=== PATIENT | male | born 1975 | race Caucasian/White ===

== ENCOUNTER 2016-09-30 19:22 | Inpatient (IN) | payer OTHER ==
[~2016-09-30] VITALS: Ht 162.6 cm; Wt 60.1 kg
[2016-09-30 19:29] VITALS: BP 161/99; PULSE 77; RESP 18; TEMP 97.8; O2SAT 95
[2016-09-30 19:59] LABS: AUTOMATED NEUTROPHIL # 3.7 TH/MM3 (1.8-7.7); BASOPHIL # 0.1 TH/MM3 (0-0.2); BASOPHIL % 1.3 % (0.0-2.0); EOSINOPHIL # 0.2 TH/MM3 (0-0.4); HEMATOCRIT 40.6 % (39.0-51.0); HEMO FLAGS DIFF FINAL; LYMPH % 43.8 % (9.0-44.0); LYMPHOCYTE # 3.4 TH/MM3 (1.0-4.8); MEAN CELL VOLUME 96.1 FL (80.0-100.0); MEAN CORPUSCULAR HEMOGLOBIN 33.2 PG (27.0-34.0); MEAN CORPUSCULAR HGB CONC 34.6 % (32.0-36.0); MONO % 5.7 % (0.0-8.0); NEUT % 47.2 % (16.0-70.0); PLATELET COUNT 218 TH/MM3 (150-450); RED BLOOD COUNT 4.22 MIL/MM3 (4.50-5.90); RED CELL DISTRIBUTION WIDTH 12.4 % (11.6-17.2); WHITE BLOOD COUNT 7.7 TH/MM3 (4.0-11.0)
[2016-09-30 20:00] VITALS: BP 162/77; PULSE 59; RESP 18; O2SAT 95
[2016-09-30] MEDS ORDERED: TETANUS/DIPHTHERIA TOXOID ADULT 0.5 ML VIAL IM ONE (20:00)
[2016-09-30 20:10] LABS: PROTHROMBIN TIME - PATIENT 10.5 SEC (9.8-11.6)
[2016-09-30 20:21] LABS: BICARBONATE 27.4 MEQ/L (21.0-32.0); POTASSIUM 3.8 MEQ/L (3.5-5.1)
[2016-09-30] MEDS ORDERED: IOHEXOL 300 MG/ML 100 ML BTL (for Rad CT) IV ONE (20:22)
--- NOTE | 2016-09-30 20:26 | PD ---
HPI Chief Complaint: Injury Time Seen by Provider: 19:29 Travel History International Travel<30 days: No Contact w/Intl Traveler<30days: No Traveled to known affect area: No History of Present Illness HPI 41yo M with no significant PMH presents to the ED with left sided rib pain s/p fall from 12 feet. Pain with deep breathing. Pt was drinking and appears mildly intoxicated. Pt denies any suicidal ideation and states he did not mean to fall off. Denies any LOC, chest pain, n/v, abdominal pain, focal weakness or numbness. PFSH Past Medical History Diminished Hearing: No Medical other: Yes Musculoskeletal: Yes (fractured vertebrae) Tetanus Vaccination: Unknown Influenza Vaccination: No Social History Alcohol Use: Yes (daily) Tobacco Use: Yes (1/2 ppd) Substance Use: Yes (marijuana) Allergies-Medications (Allergen,Severity, Reaction): Coded Allergies: Penicillin (Verified Allergy, Severe, 09/30/16) Reported Meds & Prescriptions Reported Meds & Active Scripts Active No Active Prescriptions or Reported Medications Review of Systems Except as stated in HPI: all other systems reviewed are Neg Physical Exam Narrative GENERAL: 41yo M in mild distress. SKIN: Warm and dry. HEAD: +1cm laceration scalp behind right ear. EYES: Pupils equal and round. No scleral icterus. No injection or drainage. ENT: No hemotympanum. NECK: No midline cervical spine ttp. In cervical spine collar. CARDIOVASCULAR: Regular rate and rhythm. No murmur appreciated. RESPIRATORY: No accessory muscle use. Clear to auscultation. Breath sounds equal bilaterally. CHEST WALL: No crepitus. +TTP left lateral ribs. GASTROINTESTINAL: Abdomen soft, +Epigastric and LUQ ttp. No rebound tenderness. MUSCULOSKELETAL: Left hand: Multiple superficial abrasions. FROM all digits in left hand. Radial pulse 2+. No obvious deformities. No clubbing. No cyanosis. No edema. NEUROLOGICAL: Awake and alert. +AOB. No obvious cranial nerve deficits. Motor grossly within normal limits. Normal speech. PSYCHIATRIC: Appropriate mood and affect; insight and judgment normal. Data Data Last Documented VS Vital Signs Date Time Temp Pulse Resp B/P Pulse Ox O2 Delivery O2 Flow Rate FiO2 09/30/16 21:21 89 18 111/74 95 Room Air 09/30/16 19:29 97.8 Orders Basic Metabolic Panel (Bmp) (09/30/16 19:31) Complete Blood Count With Diff (09/30/16 19:31) Prothrombin Time / Inr (Pt) (09/30/16 19:31) Act Partial Throm Time (Ptt) (09/30/16 19:31) Type And Screen (09/30/16 19:31) Alcohol (Ethanol) (09/30/16 19:31) Chest, Single Ap (09/30/16 19:31) Ct Brain W/O Iv Contrast(Rout) (09/30/16 19:31) Ct Cerv Spine W/O Contrast (09/30/16 19:31) Ct Abd/Pel W Iv Contrast(Rout) (09/30/16 19:31) Ct Thorax/ Chest W Iv Contrast (09/30/16 19:31) Ct Facial Bones W/O Iv Cont (09/30/16 19:31) Tetanus/Diphtheria Tox Adult (Tetanus/Di (09/30/16 20:00) Iohexol 300 Inj (Rad Ct) (Omnipaque 300 (09/30/16 20:22) Lidocaine 5% Patch.12 Hr (Lidoderm 5% Pa (09/30/16 21:00) Lidocaine 1% Inj (50 Ml) (Xylocaine 1% I (09/30/16 21:30) Morphine Inj (Morphine Inj) (09/30/16 21:45) Admit Order (Ed Use Only) (09/30/16 21:44) Labs Laboratory Tests Test 09/30/16 09/30/16 19:30 19:40 Blood Type O POSITIVE Antibody Screen NEGATIVE Blood Bank Comment White Blood Count 7.7 TH/MM3 Red Blood Count 4.22 MIL/MM3 Hemoglobin 14.0 GM/DL Hematocrit 40.6 % Mean Corpuscular Volume 96.1 FL Mean Corpuscular Hemoglobin 33.2 PG Mean Corpuscular Hemoglobin 34.6 % Concent Red Cell Distribution Width 12.4 % Platelet Count 218 TH/MM3 Mean Platelet Volume 7.9 FL Neutrophils (%) (Auto) 47.2 % Lymphocytes (%) (Auto) 43.8 % Monocytes (%) (Auto) 5.7 % Eosinophils (%) (Auto) 2.0 % Basophils (%) (Auto) 1.3 % Neutrophils # (Auto) 3.7 TH/MM3 Lymphocytes # (Auto) 3.4 TH/MM3 Monocytes # (Auto) 0.4 TH/MM3 Eosinophils # (Auto) 0.2 TH/MM3 Basophils # (Auto) 0.1 TH/MM3 CBC Comment DIFF FINAL Differential Comment Prothrombin Time 10.5 SEC Prothromb Time International 1.0 RATIO Ratio Activated Partial 24.0 SEC Thromboplast Time Sodium Level 137 MEQ/L Potassium Level 3.8 MEQ/L Chloride Level 100 MEQ/L Carbon Dioxide Level 27.4 MEQ/L Anion Gap 10 MEQ/L Blood Urea Nitrogen 10 MG/DL Creatinine 0.93 MG/DL Estimat Glomerular Filtration 90 ML/MIN Rate Random Glucose 127 MG/DL Calcium Level 8.0 MG/DL Ethyl Alcohol Level 322 MG/DL MDM Medical Decision Making Medical Screen Exam Complete: Yes Emergency Medical Condition: Yes Interpretation(s) EKG: NSR 84bpm. Normal axis. No ST segment elevation or depression. Differential Diagnosis Full trauma work up: Intraabdominal injury vs. hemothorax vs. rib contusion vs. rib fractures vs. ICH Narrative Course 41yo M fell from roof around 12 feet high. Pt is mildly intoxicated. Labs reviewed, H/H stable at 14/40.6. Platelet count normal. BMP unremarkable. Blood alcohol 322. CT abd/pelvis showed splenic laceration with subcapsular hematoma measuring 3.2cm and 8.8cm and there is small amount of active contrast extravasation within subcapsular splenic hematoma. There is an extraperitoneal hematoma tracking down left flank measuring about 11mm in thickness. Lower left rib fractures with small left lung contusion. Lidoderm patch given. Mildly displaced fracture of left iliac wing. CTcspine negative. CT chest showed multiple left sided rib fracture with small left hemothorax. CT brain negative. CT maxillofacial negative. Discussed with Dr. Wilson who will come evaluate the patient. Pt is currently hemodynamically stable. HR: 93. BP: 119 /70. O2sat 96% on RA. Pt given 2L NC for comfort. Pt has small abrasion in left hand, refused xray left hand. Dr. Wilson came to evaluate the pt and recommended IR consult. Discussed with interventional radiologist who will take pt to IR for embolization of splenic vessel to stop the bleeding. Pt to be admitted to ICU under trauma. 2 units of RBC ordered on hold. Critical Care Narrative Aggregate critical care time was 60 minutes. Time to perform other separately billable procedures was not included in the critical care time. My time did not include minutes spent treating any other patients simultaneously or on activities that did not directly contribute to the patient's treatment. The services I provided to this patient were to treat and/or prevent clinically significant deterioration that could result in: cardiovascular collapse or . I provided critical care services requiring my management, as noted below: Chart data review, documentation time, medication orders and management, vital sign assessments/reviewing monitor data, ordering and reviewing lab tests, ordering and interpreting/reviewing x-rays and diagnostic studies, care of the patient and discussion of the patient with the admitting physicians. Diagnosis Primary Impression: Splenic laceration Qualified Code: S36.039A - Splenic laceration, initial encounter Additional Impression: Multiple rib fractures Qualified Code: S22.42XA - Closed fracture of multiple ribs of left side, initial encounter Admitting Information Admitting Physician Requests: Admit Scripts No Active Prescriptions or Reported Meds Tiffany Alcala DO Sep 30, 2016 20:26
--- NOTE | 2016-09-30 20:28 | RADRPT ---
EXAM DATE/TIME: 09/30/2016 20:07 [facility] COMPARISON: No previous studies available for comparison. INDICATIONS : Fell off roof RADIATION DOSE: 56.35 CTDIvol (mGy) MEDICAL HISTORY : Fractured vertebrae SURGICAL HISTORY : None. ENCOUNTER: Initial ACUITY: 1 day PAIN SCALE: 8/10 LOCATION: Bilateral cranial TECHNIQUE: Multiple contiguous axial images were obtained of the head. Using automated exposure control and adj ustment of the mA and/or kV according to patient size, radiation dose was kept as low as reasonably a chievable to obtain optimal diagnostic quality images. FINDINGS: CEREBRUM: The ventricles are normal for age. No evidence of midline shift, mass lesion, hemorrhage or acute in farction. No extra-axial fluid collections are seen. POSTERIOR FOSSA: The cerebellum and brainstem are intact. The 4th ventricle is midline. The cerebellopontine angle i s unremarkable. EXTRACRANIAL: The visualized portion of the orbits is intact. SKULL: The calvaria is intact. No evidence of skull fracture. CONCLUSION: 1. No acute intracranial abnormalities. Mucosal thickening in the paranasal sinuses. Vitaly Palacios MD on September 30, 2016 at 20:24 Board Certified Radiologist. This report was verified electronically.
--- NOTE | 2016-09-30 20:38 | RADRPT ---
EXAM DATE/TIME: 09/30/2016 17:40 [facility] COMPARISON: No previous studies available for comparison. INDICATIONS : Evaluate chest for trauma, fell MEDICAL HISTORY : None. SURGICAL HISTORY : None. ENCOUNTER: Initial ACUITY: 1 day PAIN SCORE: 0/10 LOCATION: Bilateral chest FINDINGS: Multiple left-sided rib fractures are identified. No pneumothorax or pleural effusion identified. Hea rt size normal. CONCLUSION: 1. Multiple upper left rib fractures. CT pending. No pneumothorax or effusion seen on plain film. Vitaly Palacios MD on September 30, 2016 at 20:35 Board Certified Radiologist. This report was verified electronically.
--- NOTE | 2016-09-30 20:54 | RADRPT ---
EXAM DATE/TIME: 09/30/2016 20:11 [facility] COMPARISON: No previous studies available for comparison. INDICATIONS : Fell off roof RADIATION DOSE: 23.41 CTDIvol (mGy) MEDICAL HISTORY : fractured vertebrae SURGICAL HISTORY : None. ENCOUNTER: Initial ACUITY: 1 day PAIN SCALE: 8/10 LOCATION: Bilateral neck TECHNIQUE: Volumetric scanning of the cervical spine was performed. Multiplanar reconstructions in the sagittal, coronal and oblique axial planes were performed. Using automated exposure control and adjustment o f the mA and/or kV according to patient size, radiation dose was kept as low as reasonably achievable to obtain optimal diagnostic quality images. FINDINGS: VERTEBRAE: Normal vertebral body height. ALIGNMENT: No evidence of subluxation. C2-C3: The bony spinal canal is normal in size. No evidence of disc bulge or herniation. The neural forami na are bilaterally patent. C3-C4: The bony spinal canal is normal in size. No evidence of disc bulge or herniation. The neural forami na are bilaterally patent. C4-C5: The bony spinal canal is normal in size. No evidence of disc bulge or herniation. The neural forami na are bilaterally patent. C5-C6: The bony spinal canal is normal in size. No evidence of disc bulge or herniation. The neural forami na are bilaterally patent. C6-C7: The bony spinal canal is normal in size. No evidence of disc bulge or herniation. The neural forami na are bilaterally patent. C7-T1: The bony spinal canal is normal in size. No evidence of disc bulge or herniation. The neural forami na are bilaterally patent. CONCLUSION: Normal examination for a patient of this age. Vitaly Palacios MD on September 30, 2016 at 20:50 Board Certified Radiologist. This report was verified electronically.
--- NOTE | 2016-09-30 20:56 | RADRPT ---
EXAM DATE/TIME: 09/30/2016 20:12 [facility] COMPARISON: No previous studies available for comparison. INDICATIONS : Fell off roof RADIATION DOSE: 21.96 CTDIvol (mGy) MEDICAL HISTORY : Fractured vertebrae SURGICAL HISTORY : None. ENCOUNTER: Initial ACUITY: 1 day PAIN SCORE: 8/10 LOCATION: Bilateral facial TECHNIQUE: Volumetric scanning of the facial bones was performed. Using automated exposure control and adjustme nt of the mA and/or kV according to patient size, radiation dose was kept as low as reasonably achiev able to obtain optimal diagnostic quality images. FINDINGS: ORBITS: The orbital and infraorbital osseous structures are intact. The retroconal structures have a normal configuration. No radiopaque foreign bodies are seen. NASAL BONE: The nasal bone and maxillary spine are intact ZYGOMATIC ARCHES: Symmetric without evidence of fracture. SINUSES: The maxillary, ethmoid and frontal sinuses are intact. No air-fluid levels seen. NASAL CAVITY: The nasal septum is intact and midline. The lacrimal ducts are intact. SOFT TISSUES: No radiopaque foreign bodies seen. No soft-tissue swelling is seen. INTRACRANIAL: No intracranial air seen. CRIBIFORM PLATE: Grossly intact. CONCLUSION: 1. No acute fracture identified. Mucosal thickening present in the paranasal sinuses. Vitaly Palacios MD on September 30, 2016 at 20:52 Board Certified Radiologist. This report was verified electronically.
[2016-09-30] MEDS ORDERED: LIDOCAINE HCL 5% PATCH TD ONE (21:00)
--- NOTE | 2016-09-30 21:10 | RADRPT ---
EXAM DATE/TIME: 09/30/2016 20:18 [facility] COMPARISON: No previous studies available for comparison. INDICATIONS : Fell off roof IV CONTRAST: 95 cc Omnipaque 350 (iohexol) IV ; Cumulative dose for multiple exams. ORAL CONTRAST: No oral contrast ingested. RADIATION DOSE: 5.1 CTDIvol (mGy) ; Reconstructed from previous dataset MEDICAL HISTORY : Fractured vertebrae SURGICAL HISTORY : None. ENCOUNTER: Initial ACUITY: 1 day PAIN SCALE: 8/10 LOCATION: Bilateral abdomen pelvis TECHNIQUE: Volumetric scanning of the abdomen and pelvis was performed. Using automated exposure control and ad justment of the mA and/or kV according to patient size, radiation dose was kept as low as reasonably achievable to obtain optimal diagnostic quality images. FINDINGS: There is a splenic laceration and a subcapsular hematoma of the spleen measuring up to about 3.2 cm i n thickness and 8.8 cm in length. There is some contrast extravasation in the subcapsular hematoma. T here is subcutaneous hemorrhage in the left flank and some edematous changes in the left lateral abdo dashawn wall. Lower left-sided rib fractures are present. No basilar pneumothorax identified. There is a small lung contusion at the left lung base posteriorly. No liver laceration identified. The adrenals and kidneys unremarkable. Pancreas unremarkable. No calc ified gallstones. There is no air or significant free fluid within the peritoneal cavity. An extraper itoneal hematoma is seen tracking down the left flank measuring about 11 mm in thickness. There is a mildly displaced fracture through the bony left iliac wing. No significant pelvic hematoma. CONCLUSION: 1. Splenic laceration with subcapsular hematoma measuring up to 3.2 cm in thickness and 8.8 cm in lindsey gth. There is also a small amount of active contrast extravasation within the subcapsular splenic hem atoma. No significant free intraperitoneal fluid. There is an extraperitoneal hematoma tracking down the left flank measuring about 11 mm in thickness. There is some edematous changes in the left latera l abdominal wall and some subcutaneous hemorrhage. 2. Lower left rib fractures with small left lower lobe lung contusion. 3. No other solid visceral injuries identified. 4. Mildly displaced fracture of left iliac wing. Vitaly Palacios MD on September 30, 2016 at 21:01 Board Certified Radiologist. This report was verified electronically.
--- NOTE | 2016-09-30 21:15 | RADRPT ---
EXAM DATE/TIME: 09/30/2016 20:18 [facility] COMPARISON: No previous studies available for comparison. INDICATIONS : Fell off roof IV CONTRAST: 95 cc Omnipaque 350 (iohexol) IV ; Cumulative dose for multiple exams. RADIATION DOSE: 5.1 CTDIvol (mGy) ; Combined studies - Thorax/Abdomen/Pelvis MEDICAL HISTORY : Fractured vertebrae. SURGICAL HISTORY : None. ENCOUNTER: Initial ACUITY: 1 day PAIN SCALE: 8/10 LOCATION: Bilateral chest TECHNIQUE: Volumetric scanning of the chest was performed. Using automated exposure control and adjustment of t he mA and/or kV according to patient size, radiation dose was kept as low as reasonably achievable to obtain optimal diagnostic quality images. FINDINGS: There are numerous left-sided rib fractures both posteriorly and laterally with mild contusion along the posterior aspect of the left lung. No pneumothorax identified. There is some paraseptal emphysema in the lungs. There is a small left-sided hemothorax. No mediastinal hematoma or evidence for trauma tic aortic injury. No adenopathy. Upper abdomen reveals a subcapsular hematoma of the spleen with some active contrast extravasation. CONCLUSION: 1. Multiple left-sided rib fractures with mild left lung contusion and small left hemothorax. 2. A subcapsular hematoma of the spleen with some active contrast extravasation. 3. Negative for traumatic aortic injury. Vitaly Palacios MD on September 30, 2016 at 21:09 Board Certified Radiologist. This report was verified electronically.
[2016-09-30 21:21] VITALS: BP 111/74; PULSE 89; RESP 18; O2SAT 95
[2016-09-30] MEDS ORDERED: LIDOCAINE HCL 1% 50 ML VIAL INFIL ONE (21:30)
--- NOTE | 2016-09-30 21:41 | PD ---
Physical Exam Narrative I was asked by Dr. Alcala to repair patient's laceration. Please see her documentation for full H&P. Data Data Last Documented VS Vital Signs Date Time Temp Pulse Resp B/P Pulse Ox O2 Delivery O2 Flow Rate FiO2 09/30/16 21:21 89 18 111/74 95 Room Air 09/30/16 19:29 97.8 Orders Basic Metabolic Panel (Bmp) (09/30/16 19:31) Complete Blood Count With Diff (09/30/16 19:31) Prothrombin Time / Inr (Pt) (09/30/16 19:31) Act Partial Throm Time (Ptt) (09/30/16 19:31) Type And Screen (09/30/16 19:31) Alcohol (Ethanol) (09/30/16 19:31) Chest, Single Ap (09/30/16 19:31) Ct Brain W/O Iv Contrast(Rout) (09/30/16 19:31) Ct Cerv Spine W/O Contrast (09/30/16 19:31) Ct Abd/Pel W Iv Contrast(Rout) (09/30/16 19:31) Ct Thorax/ Chest W Iv Contrast (09/30/16 19:31) Ct Facial Bones W/O Iv Cont (09/30/16 19:31) Tetanus/Diphtheria Tox Adult (Tetanus/Di (09/30/16 20:00) Iohexol 300 Inj (Rad Ct) (Omnipaque 300 (09/30/16 20:22) Lidocaine 5% Patch.12 Hr (Lidoderm 5% Pa (09/30/16 21:00) Hand, Limited (2vws) (09/30/16 ) Lidocaine 1% Inj (50 Ml) (Xylocaine 1% I (09/30/16 21:30) Labs Laboratory Tests Test 09/30/16 09/30/16 19:30 19:40 Blood Type O POSITIVE Antibody Screen NEGATIVE Blood Bank Comment White Blood Count 7.7 TH/MM3 Red Blood Count 4.22 MIL/MM3 Hemoglobin 14.0 GM/DL Hematocrit 40.6 % Mean Corpuscular Volume 96.1 FL Mean Corpuscular Hemoglobin 33.2 PG Mean Corpuscular Hemoglobin 34.6 % Concent Red Cell Distribution Width 12.4 % Platelet Count 218 TH/MM3 Mean Platelet Volume 7.9 FL Neutrophils (%) (Auto) 47.2 % Lymphocytes (%) (Auto) 43.8 % Monocytes (%) (Auto) 5.7 % Eosinophils (%) (Auto) 2.0 % Basophils (%) (Auto) 1.3 % Neutrophils # (Auto) 3.7 TH/MM3 Lymphocytes # (Auto) 3.4 TH/MM3 Monocytes # (Auto) 0.4 TH/MM3 Eosinophils # (Auto) 0.2 TH/MM3 Basophils # (Auto) 0.1 TH/MM3 CBC Comment DIFF FINAL Differential Comment Prothrombin Time 10.5 SEC Prothromb Time International 1.0 RATIO Ratio Activated Partial 24.0 SEC Thromboplast Time Sodium Level 137 MEQ/L Potassium Level 3.8 MEQ/L Chloride Level 100 MEQ/L Carbon Dioxide Level 27.4 MEQ/L Anion Gap 10 MEQ/L Blood Urea Nitrogen 10 MG/DL Creatinine 0.93 MG/DL Estimat Glomerular Filtration 90 ML/MIN Rate Random Glucose 127 MG/DL Calcium Level 8.0 MG/DL Ethyl Alcohol Level 322 MG/DL MDM Supervised Visit with M[facility]: No Procedures Procedure Narrative LACERATION REPAIR LOCATION: Right posterior temporal lobe LENGTH: Approximately 1.5 cm NUMBER OF STITCHES/TORI: 2 tori REPAIR: Verbal consent was obtained. The area of the laceration was cleaned and prepped. The laceration was infiltrated with light without epi. The wound was copiously irrigated and explored without evidence of foreign body, bony involvement, ligament injury, tendon injury, or neurovascular injury. The wound was closed using tori. This was a single layer repair. The patient was advised to keep the affected area as clean and dry as possible using soap and water. There were no complications. Patient tolerated the procedure well. Scripts No Active Prescriptions or Reported Meds Bladimir Grubbs Sep 30, 2016 21:41
[2016-09-30] MEDS ORDERED: MORPHINE SULFATE 4 MG/ML INJ IV PUSH ONE (21:45)
[2016-09-30] MEDS ORDERED: SODIUM CHLOR 0.9% 250 ML INJ 250 ML IV ONE (22:00)
[2016-09-30] MEDS ORDERED: FLUMAZENIL 0.5 MG/5 ML VIAL IV PUSH PRN (23:00)
[2016-09-30] MEDS ORDERED: LORazepam 2 MG/ML VIAL IV PUSH PRN ×4 (23:00)
[2016-09-30] MEDS ORDERED: SODIUM CHLORIDE 0.9% FLUSH 5 ML FLUSH IVF PRN (23:00)
[2016-09-30] MEDS ORDERED: MISCELLANEOUS NURSING INFORMATION XX SCH (23:00)
[2016-09-30] MEDS ORDERED: CHLORHEXIDINE GLUCONATE 2 % 1 PACK (2 CLOTHS) TOP PRN (23:00)
[2016-09-30] MEDS ORDERED: LORazepam 1 MG TAB PO PRN (23:00)
[2016-09-30] MEDS ORDERED: DOCUSATE SODIUM 100 MG CAP PO SCH (23:00)
[2016-09-30] MEDS ORDERED: LORazepam 2 MG TAB PO PRN (23:00)
[2016-09-30 23:02] VITALS: BP 119/70; PULSE 95; RESP 18; O2SAT 99
--- NOTE | 2016-09-30 23:14 | PD.CONS ---
[facility] Service Critical Care Medicine Consult Requested By Dr. Wilson Reason for Consult Critical care management Primary Care Physician No Primary Care Physician History of Present Illness 41yo M . Date of admission 09/30/2016. Date of consultation 09/30/2016.If the past medical history except for fractured vertebrae, EtOH use, tobaccoism and occasional THC use. Night, Dr. rosasation level fall from roof around 12 feet high. Pt is mildly intoxicated.. EtOH level was 322.. Patient laceration to posterior scalp which was stapled. Pertinent findings CT abd/pelvis showed splenic laceration with subcapsular hematoma measuring 3.2cm and 8.8cm and there is small amount of active contrast extravasation within subcapsular splenic hematoma. There is an extraperitoneal hematoma tracking down left flank measuring about 11mm in thickness. Also revealed mildly displaced fracture of left iliac wing. CT thorax multiple Lower left rib fractures with small posterior left lung contusion and pneumothorax. Lidoderm patch given. CT cspine negative. CT brain negative. CT maxillofacial negative. Dr. Wilson came to evaluate the pt and recommended IR consult. Currently blood pressure stable and IR will not embolize the present time Review of Systems Constitutional: DENIES: Fatigue, Fever, Weight gain Endocrine: DENIES: Polyuria Eyes: DENIES: Blurred vision Ears, nose, mouth, throat: DENIES: Tinnitus, Sinus Pain Respiratory: DENIES: Sputum production, Shortness of breath Cardiovascular: COMPLAINS OF: Chest pain, DENIES: Dyspnea on Exertion Gastrointestinal: COMPLAINS OF: Abdominal pain, DENIES: Nausea, Vomiting Genitourinary: DENIES: Urgency Musculoskeletal: COMPLAINS OF: Joint pain, Back pain Integumentary: COMPLAINS OF: Rash, DENIES: Pruritus Hematologic/lymphatic: COMPLAINS OF: Bruising Immunologic/allergic: DENIES: Urticaria Neurologic: COMPLAINS OF: Headache, DENIES: Abnormal gait Psychiatric: COMPLAINS OF: Confusion, DENIES: Anxiety Past Family Social History Allergies: Coded Allergies: Penicillin (Verified Allergy, Severe, 09/30/16) Past Medical History History of fractured vertebrae EtOH use Tobaccoism THC use Past Surgical History None Reported Medications None Active Ordered Medications Reviewed in EMR Family History Mother and father is noncontributory Social History One half pack per day tobacco. Occasional THC use. Positive EtOH use. Physical Exam Vital Signs Vital Signs Date Time Temp Pulse Resp B/P Pulse Ox O2 Delivery O2 Flow Rate FiO2 09/30/16 23:02 95 18 119/70 99 Nasal Cannula 2 09/30/16 21:21 89 18 111/74 95 Room Air 09/30/16 20:00 59 18 162/77 95 Room Air 09/30/16 19:29 97.8 77 18 161/99 95 Physical Exam GENERAL: 41-year-old male, resting in gurney in no acute distress SKIN: Evolving abrasions to the face/maxillofacial. Stapled posterior scalp. Abrasions bilateral upper and lower extremities. Left-sided evolving abdominal wall hematoma HEAD: Brigette to posterior scalp Normocephalic. EYES: Pupils equal and round around 2 mm bilaterally and reactive. No scleral icterus. No injection or drainage. ENT: No nasal bleeding or discharge. Mucous membranes pink and moist. NECK: Trachea midline. No JVD. CARDIOVASCULAR: RRR. S1, S2. No S4. Without murmur PULMONARY: Diminished breath sounds left lower lobe. Tender to palpation left ribs secondary to fractures. No flail chest. GASTROINTESTINAL: Abdomen tender to palpation left flank. Evolving hematoma noted. No bowel sounds appreciated MUSCULOSKELETAL: Extremities without significant peripheral edema. Pulses palpable bilateral lower extremities dorsalis pedis/posterior tibials. NEUROLOGICAL: Awake and alert. No obvious cranial nerve deficits. Motor grossly within normal limits. Five out of 5 muscle strength in the arms and legs. Normal speech. Laboratory Laboratory Tests Test 09/30/16 09/30/16 09/30/16 19:30 19:40 21:58 Blood Type O POSITIVE Antibody Screen NEGATIVE Blood Bank Comment White Blood Count 7.7 Red Blood Count 4.22 Hemoglobin 14.0 Hematocrit 40.6 Mean Corpuscular Volume 96.1 Mean Corpuscular Hemoglobin 33.2 Mean Corpuscular Hemoglobin 34.6 Concent Red Cell Distribution Width 12.4 Platelet Count 218 Mean Platelet Volume 7.9 Neutrophils (%) (Auto) 47.2 Lymphocytes (%) (Auto) 43.8 Monocytes (%) (Auto) 5.7 Eosinophils (%) (Auto) 2.0 Basophils (%) (Auto) 1.3 Neutrophils # (Auto) 3.7 Lymphocytes # (Auto) 3.4 Monocytes # (Auto) 0.4 Eosinophils # (Auto) 0.2 Basophils # (Auto) 0.1 CBC Comment DIFF FINAL Differential Comment Prothrombin Time 10.5 Prothromb Time International 1.0 Ratio Activated Partial 24.0 Thromboplast Time Sodium Level 137 Potassium Level 3.8 Chloride Level 100 Carbon Dioxide Level 27.4 Anion Gap 10 Blood Urea Nitrogen 10 Creatinine 0.93 Estimat Glomerular Filtration 90 Rate Random Glucose 127 Calcium Level 8.0 Ethyl Alcohol Level 322 Crossmatch Leukocyte-Reduced Red Blood Cells Result Diagram: 09/30/16193909/30/161939 Imaging Last Impressions Maxillofacial CT 09/30/161930 Signed Impressions: Service Date/Time: September 20:12 - CONCLUSION: 1. No acute fracture identified. Mucosal thickening present in the paranasal sinuses. Vitaly Palacios MD Head CT 09/30/161930 Signed Impressions: Service Date/Time: September 20:07 - CONCLUSION: 1. No acute intracranial abnormalities. Mucosal thickening in the paranasal sinuses. Vitaly Palacios MD Chest X-Ray 09/30/161930 Signed Impressions: Service Date/Time: September 17:40 - CONCLUSION: 1. Multiple upper left rib fractures. CT pending. No pneumothorax or effusion seen on plain film. Vitaly Palacios MD Chest CT 09/30/161930 Signed Impressions: Service Date/Time: September 20:18 - CONCLUSION: 1. Multiple left-sided rib fractures with mild left lung contusion and small left hemothorax. 2. A subcapsular hematoma of the spleen with some active contrast extravasation. 3. Negative for traumatic aortic injury. Vitaly Palacios MD Cervical Spine CT 09/30/161930 Signed Impressions: Service Date/Time: September 20:11 - CONCLUSION: Normal examination for a patient of this age. Vitaly Palacios MD Abdomen/Pelvis CT 09/30/161930 Signed Impressions: Service Date/Time: September 20:18 - CONCLUSION: 1. Splenic laceration with subcapsular hematoma measuring up to 3.2 cm in thickness and 8.8 cm in length. There is also a small amount of active contrast extravasation within the subcapsular splenic hematoma. No significant free intraperitoneal fluid. There is an extraperitoneal hematoma tracking down the left flank measuring about 11 mm in thickness. There is some edematous changes in the left lateral abdominal wall and some subcutaneous hemorrhage. 2. Lower left rib fractures with small left lower lobe lung contusion. 3. No other solid visceral injuries identified. 4. Mildly displaced fracture of left iliac wing. Vitaly Palacios MD Assessment and Plan Assessment and Plan Neuro/Psych: EtOH CT head/maxillofacial negative for acute intracranial findings Thiamine/folate/multivitamin daily 3 days Placed on CIWA protocol Monitor for DTs Matthews/Dilaudid for pain management CV: Currently not requiring any vasopressors and/or antihypertensives. Resp: Left pneumothorax Left rib fractures Tobaccoism Nasal cannula to maintain adequate saturations Incentive spirometry if indicated Tobacco cessation will be encouraged. GI: Splenic laceration CT abdomen/pelvis revealed a splenic laceration and a subcapsular hematoma the spleen measuring 3.2 cm in thickness 8.8 cm in length. Some contrast extravasation in the subscapular hematoma. Some edematous changes left lateral abdominal wall. 11 mm in thickness discussed with IR. Dr. Morillo with emboectomy splenic artery with Gelfoam Serial hemoglobins last one 12.9 Monitor hemodynamics closely : Jeffries if indicated for accurate I's and O's in a critical patient Endo: Sliding-scale insulin if indicated to maintain euglycemia Renal: Creatinine currently within normal limits. Accurate I's and O's Monitor urine output Heme: CBC currently within normal limits Recheck H&Hat 0200 and CBC in a.m. Coags within normal limits ID: Monitor for infection MSK: Left iliac wing fracturemild displaced on CT abdomen pelvis Orthopedics consulted. FEN: Replace electrolytes as clinically indicated Access - Utilize peripheral IV. Central line if indicated Prophylaxis - GI -Protonix if indicated - DVT - holding pharmacological prophylaxis with splenic hematoma/laceration Critical Care: The total critical care time was 55 minutes. Time to perform other separately billable procedures was not included in the critical care time. Code Status Full code Discussed Condition With Dr. Wilson/trauma physician. Patient. Care plan discussed all questions answered Mitchell Sen MD Sep 30, 2016 23:14
[2016-09-30] MEDS ORDERED: MIDAZOLAM HCL 5 MG/5 ML VIAL ONE (23:29)
[2016-09-30] MEDS ORDERED: fentaNYL CITRATE 250 MCG/5 ML AMP ONE (23:30)
[2016-10-01] VITALS (22 sets, daily range): BP systolic 119–206; BP diastolic 94–117; PULSE 72–113; RESP 16–25; TEMP 97.7–98.3; O2SAT 96–100
[2016-10-01] MEDS ORDERED: SODIUM CHLOR 0.9% 1000 ML INJ 1,000 ML IV SCH (00:09)
--- NOTE | 2016-10-01 00:10 | PD.RAD ---
Post Procedure Progress Note Pre Procedure Diagnosis: (1) Splenic laceration Post Procedure Diagnosis: (1) Splenic laceration Procedure Date: Oct 01, 2016 Supervising Radiologist: Adria Morillo Proceduralist/Assist: Martha Grubbs, RT(R)(), Vesta Carroll RT(R)(CV) Anesthesia: Conscious Sedation Plan of Activity Patient to Unit: Nursing Unit Patient Condition: Good See PACS Report for procedural detail/treatment Vascular-Arterial Procedure Procedure 1 Procedure Site: Abdominal Procedure(s): Embolization (splenic artery with gelfoam) Access Access Site(s): Right Femoral Artery Closure Site(s): Right manual pressure Adria Morillo MD Oct 01, 2016 00:10
[2016-10-01] MEDS: ONDANSETRON HCL 4 MG/2 ML VIAL IV PRN ×2 (00:15→08:14)
[2016-10-01] MEDS ORDERED: ACETAMINOPHEN 325 MG TAB PO PRN (00:15)
[2016-10-01] MEDS ORDERED: IODIXANOL 320 MG/ML 50 ML VIAL (for RAD SPEC) I-ARTERIAL ONE (00:20)
[2016-10-01] MEDS: PANTOPRAZOLE SODIUM 40 MG VIAL IVP SCH ×2 (02:02→22:11)
[2016-10-01] MEDS: SODIUM CHLOR 0.9% 1000 ML INJ 1,000 ML IV SCH ×5 (02:02→23:10)
[2016-10-01] MEDS: BACITRACIN TOP OINT 15 GM TUBE TOP SCH ×3 (02:03→20:35)
[2016-10-01] MEDS: HYDROmorphone HCL PF 1 MG/ML VIAL IVP PRN ×6 (02:05→14:12)
[2016-10-01 02:58] LABS: AUTOMATED NEUTROPHIL # 16.4 TH/MM3 (1.8-7.7); BASOPHIL # 0.1 TH/MM3 (0-0.2); BASOPHIL % 0.6 % (0.0-2.0); LYMPH % 4.4 % (9.0-44.0); LYMPHOCYTE # 0.8 TH/MM3 (1.0-4.8); MEAN CELL VOLUME 95.4 FL (80.0-100.0); MEAN CORPUSCULAR HEMOGLOBIN 33.2 PG (27.0-34.0); MEAN CORPUSCULAR HGB CONC 34.8 % (32.0-36.0); MONO % 4.7 % (0.0-8.0); NEUT % 90.3 % (16.0-70.0); PLATELET COUNT 201 TH/MM3 (150-450); RED BLOOD COUNT 3.88 MIL/MM3 (4.50-5.90); RED CELL DISTRIBUTION WIDTH 12.6 % (11.6-17.2); WHITE BLOOD COUNT 18.2 TH/MM3 (4.0-11.0)
[2016-10-01 02:59] LABS: HEMO FLAGS AUTO DIFF
[2016-10-01 03:13] LABS: BICARBONATE 22.6 MEQ/L (21.0-32.0); POTASSIUM 4.3 MEQ/L (3.5-5.1)
[2016-10-01] MEDS: CHLORHEXIDINE GLUCONATE 2 % 1 PACK (2 CLOTHS) TOP SCH (04:00)
[2016-10-01] MEDS: ENALAPRILAT 1.25 MG/ML VIAL IV PRN ×2 (05:05→16:46)
[2016-10-01 05:13] LABS: BANDS 12 % (0-6); MYELOCYTES 2 % (0-0); NEUTROPHIL # MANUAL DIFF 16.4 TH/MM3 (1.8-7.7); POLYS (SEG NEUTROPHILS) 76 % (16-70); WBC DIFF SAMPLE 100
[2016-10-01 05:14] LABS: PLATELET ESTIMATE SMEAR NORMAL (NORMAL); PLATELET MORPHOLOGY NORMAL (NORMAL); SCAN/DIFF FINAL DIFF MANUAL
--- NOTE | 2016-10-01 06:18 | RADRPT ---
EXAM DATE/TIME: 10/01/2016 03:53 [facility] COMPARISON: CT THORAX W CONTRAST, September 30, 2016, 20:18. INDICATIONS : Post trauma. MEDICAL HISTORY : None. SURGICAL HISTORY : None. ENCOUNTER: Subsequent ACUITY: 2 days PAIN SCORE: Non-responsive. LOCATION: Bilateral chest FINDINGS: Mild atelectasis and trace effusion again seen left lung base. Left rib fractures are again noted. No perceptible pneumothorax. Right lung remains clear. CONCLUSION: No significant change trace consolidation and pleural fluid left lung base. No perceptible pneumothor ax. Washington Champion MD on October 01, 2016 at 6:15 Board Certified Radiologist. This report was verified electronically.
--- NOTE | 2016-10-01 07:13 | MH ---
cc: BRIANDA ROGEL MD DATE OF ADMISSION 09/30/2016 CHIEF COMPLAINT Fall, trauma/non-trauma alert. 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 The patient has questionable loss of consciousness and is a poor historian. He presented to the emergency department complaining of left-sided pain. The patient had further workup including CT scans showing multiple at least four rib fractures on the left, small hemopneumothorax and a splenic laceration with a very large hematoma with active extravasation of contrast. The patient also noted to have a left pelvic fracture as well. Interventional radiology was consulted along with surgery for further evaluation. On my exam, the patient is answering questions. He is a GCS of 14 and moving extremities. He does complain of severe significant left chest pain along with guarding to the left side of the abdomen and is exquisitely tender to palpation. His pulse was 99 and blood pressure was 115/70. His hemoglobin was 14 and coag's were normal. PAST MEDICAL HISTORY The patient denies any past medical history. PAST SURGICAL HISTORY The patient has had no surgery. ALLERGIES PENICILLIN ALLERGY SOCIAL HISTORY Positive ETOH, positive smoking. Occasional recreational drug use. FAMILY HISTORY Father with diabetes. MEDICATIONS The patient is on no medications. REVIEW OF SYSTEMS GENERAL: Headache, intoxication. HEENT: Denies eye pain or ear pain. NECK: Denies neck pain. CHEST: Complained of chest pain. Denies wheeze. Complaint of shortness of breath. ABDOMEN: Denies final nausea and vomiting. Complained of pain. RESPIRATORY: Complained of shortness of breath and denies cough. : Denies dysuria or hematuria. EXTREMITIES: Denies arthralgia or myalgia. ENDOCRINE: Denies polyuria or polydipsia. INTEGUMENT: Complained of abrasions. Denies new lesions. PSYCH: Positive ETOH, change in mental status. HEME: Denies hemarthrosis or easy bruising. PHYSICAL EXAMINATION GENERAL: The patient is in moderate distress. VITAL SIGNS: Temperature 97.8, pulse 99, respiratory rate 18, blood pressure 119/70, saturation 99% on two liters. HEENT: Pupils equal and reactive, minimally dilated. Poor dentition. NECK: Supple. Trachea midline. No JVD. HEART: S1-S2, mildly tachycardiac. CHEST: Positive tenderness to palpation on the left side. Bilateral expansion. ABDOMEN: Soft on the right, positive tenderness to palpation on the left, positive guarding. Minimal rebound. : No blood at the meatus within normal limits. EXTREMITIES: Moving all extremities, warm, well-perfused. SKIN: Mild abrasions. NEUROLOGIC: 5/5 motor, GCS of 14/15. LABORATORY AND DIAGNOSTIC DATA WBC 7.7, hemoglobin 14, hematocrit 40.6, platelet count 218. Sodium 137, potassium 3.8, chloride 100, BUN 10, creatinine 0.93, glucose 127, calcium 8, PT 10.5, INR 1, PTT 24. Chest x-ray of multiple left upper rib fractures and pneumothorax. CT CHEST Reviewed by myself, multiple four rib fractures on the left, left lung contusions, small hemopneumothorax, splenic capsular hematoma with active extravasation. CT of the abdomen and pelvis, splenic laceration and capsular hematoma 3 x 9 cm active with contrast extravasation with capsular splenic hematoma, extraperitoneal hematoma tracking down the left flank 11 mm, lower rib fractures seen. CT HEAD Reviewed by myself, no evidence of intracranial injury, sinus thickening. CT max face no acute fracture. CT C-spine negative for fracture. ASSESSMENT/PLAN The patient is a 41-year-old male status post fall from 12 feet, active splenic extravasation, splenic laceration, multiple four rib fractures, positive ETOH. A left iliac wing pelvic fracture. PLAN After full clinical, radiologic, laboratory workup, the patient with above-named issues including a splenic laceration, large hematoma, active extravasation, interventional radiology has been consulted for evaluation and possible embolization if they see continued extravasation. The patient mildly tachycardiac. Blood pressure is stable at this time. He may need splenectomy if IR unable to coil, change in hemodynamics, or worsening clinical exam. Currently, blood pressure normal. We will continue to check hemoglobins and monitor the patient very closely and check coag's as well. Pelvic iliac wing fractures. We will discuss with orthopedics in the morning regarding evaluation and management of these. The patient will be non-weightbearing until orthopedics have seen him. Rib fractures and small hemopneumothorax. We will follow up with a chest x-ray. We will continue to give the patient adequate pain control and monitoring for this. He will need pulmonary toilet and potentially chest physiotherapy. Positive intoxication. We will have CIWA protocol available and monitor the patient for any signs of DTs. The patient will be admitted to the ISC service with consultation to the short story writer and again close monitoring, IV fluids, n.p.o. for now, pain control and follow for evidence of ongoing injury. 45 minutes were spent in review of chart, work up, and patient contract, review of radiologic images, and treatment. MD KALI Ash/MJ /6:25 AM /6:53 AM MTDArun
[2016-10-01] MEDS: ACETAMINOPHEN/HYDROcodone 325 MG/5 MG TAB PO PRN ×2 (08:15→16:47)
[2016-10-01] MEDS ORDERED: LABETALOL HCL 100 MG/20 ML VIAL IV PRN (09:00)
[2016-10-01] MEDS ORDERED: GELATIN 12 MM/7 MM FOAM I-ARTERIAL ONE (09:09)
[2016-10-01] MEDS: THIAMINE HCL 100 MG TAB PO SCH (09:30)
[2016-10-01] MEDS: DOCUSATE SODIUM 50 MG/SENNA 8.6 MG TAB PO SCH ×2 (09:30→20:34)
[2016-10-01] MEDS: MULTIVITAMIN TAB PO SCH (09:30)
[2016-10-01] MEDS: FOLIC ACID 1 MG TAB PO SCH (09:30)
--- NOTE | 2016-10-01 10:15 | RADRPT ---
EXAM DATE/TIME: 09/30/2016 23:05 [facility] COMPARISON: No previous studies available for comparison. INDICATIONS : Patient fell off a roof, multiple fractures and needs spleen embolization. MEDICAL HISTORY : None SURGICAL HISTORY : None ENCOUNTER: Initial ACUITY: 1 day PAIN SCORE: 10/10 LOCATION: Left abdomen FLUORO TIME: 10.1 minutes ACCESS SITE: Right Femoral artery SEDATION TIME: 30 minutes CONTRAST: 1.) 75 cc Visipaque (iodixanol) MEDICATION(S): 1.) 1 mg midazolam (Versed) IV 2.) 50 mcg fentanyl (Sublimaze) IV DEVICE(S): 1.) Splenic artery Gelfoam PROCEDURE : 1. Ultrasound-guided puncture of the access site. 2. Conscious sedation with continuous EKG and Oximetry monitoring. 3. Angiography of the celiac axis 4. Angiography of the stomach artery 5. embolization of the splenic artery The risks, benefits and alternatives to the procedure were explained and verbal and written consent w as obtained. The site was prepped in sterile fashion. Full sterile technique was used, including ca p, mask, sterile gloves and gown and a large sterile sheet. Hand hygiene and 2% chlorhexidine and/or betadine/alcohol prep was utilized per protocol for cutaneous antisepsis. The skin and subcutaneous tissues were infiltrated with local anesthetic solution. With ultrasound and fluoroscopic guidance the selected artery was punctured and a vascular sheath was placed A hook catheter was placed in the sac axis angiography was performed to identify the course of the sp lenic artery and also identify a focal air extravasation in a ruptured spleen with a subcapsular mynor bronwyn. A straight catheter was advanced into the distal splenic artery and positive contrast confirmed the transition. Gelfoam was placed to complete stasis. Followup angiography demonstrates no aggregat e flow. The puncture site was closed with manual pressure and hemostasis was obtained. The patient tolerated the procedure well and there were no complications. Conscious sedation was performed with the prescribed dosages and duration as above. EKG and oximetry remained stable throughout the procedure. CONCLUSION: 1. Uncomplicated splenic embolization Adria Morillo MD on October 01, 2016 at 10:12 Board Certified Radiologist. This report was verified electronically.
--- NOTE | 2016-10-01 13:57 | MB ---
cc: BRIANDA WILSON MD, TODD DATE OF CONSULTATION: 10/01/2016 REASON FOR CONSULTATION Left iliac wing fracture. CONSULTING PHYSICIAN Dr. 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 He states that the metal sheet that he was standing on was slippery. He subsequently fell approximately 12 feet. He had possible loss of consciousness. He presented to the emergency room complaining of multiple injuries. He had a laceration of his scalp, rib fractures, small pneumothorax, splenic laceration and a left iliac wing fracture. He is currently awake in the emergency department. He complains of pain all over. Pain is improved with rest and is worse with movement. PAST MEDICAL HISTORY ILLNESSES None. SURGERIES None. ALLERGIES PENICILLIN. MEDICATIONS None. SOCIAL HISTORY The patient does drink alcohol and smokes. He also uses occasional drugs. FAMILY HISTORY Positive for diabetes in his father. REVIEW OF SYSTEMS The patient denies headache, visual changes, neck pain, abdominal pain, nausea, vomiting or recent weight loss or numbness or tingling of extremities. He does complain of chest pain around his rib fractures. He also complains of left-sided hip pain. PHYSICAL EXAMINATION GENERAL: The patient is a thin 41-year male in no acute distress. He is awake and alert. VITAL SIGNS: Temperature 98.3, pulse 85, respirations 16, blood pressure 175/99. O2 sat is 100% on two liter nasal cannula. HEAD: The patient has a small laceration on the left side of his scalp. Pupils are equal. NECK: Soft, nontender. Trachea is midline. CHEST: The patient has tenderness over his ribs. ABDOMEN: Soft, nontender, nondistended. PELVIS: He is very tender to palpation on the left side of his pelvis and iliac wing. EXTREMITIES: Examination of bilateral upper extremities reveals minimal pain with shoulder, elbow or wrist motion. Sensation is intact in all fingers. He has good capillary refill in all fingers. He has +5 information clerk cashier strength. Radial pulses are palpable. Examination of bilateral lower extremities reveals no significant pain with hip, knee or ankle motion. Skin is intact in both feet. Sensation is intact in both feet. He has +5 strength of ankle dorsiflexion and plantar flexion. IMAGING CT scan and x-ray of the pelvis were reviewed. The patient has a minimally displaced left-sided iliac wing fracture. The remainder of the pelvic ring is intact. IMPRESSION 1. Minimally displaced left iliac wing fracture. 2. Splenic laceration. 3. Multiple rib fractures. PLAN The treatment options were discussed with the patient. At this point I recommend nonoperative treatment. The iliac wing is relatively well-aligned. He may weight bear as tolerated. He has no specific restrictions in regard to his iliac wing fracture. He may follow-up with orthopedics as needed. All questions were answered. A mid-level provider in my office (nurse practitioner or physician assistant purchasing manager) may see this patient on follow-up visits and continue to implement the objectives of this plan including: Starting or adjusting medications, injections , cast application, orthotics, brace application, physical therapy, radiological studies (including x-ray, MRI, CT, ultrasound, bone scan), vascular studies, neurologic studies, specialist consultation, and proceeding with surgical management, as appropriate. MD DAKOTA Gill/HILL /1:41 PM /1:49 PM MTDArun
--- NOTE | 2016-10-01 14:27 | HHI.CCPN ---
Subjective Brief History 41-year-old male came his prior T1 trauma alert after he fell from a roof about 10-12 feet off the ground and landed on a grassy surface. Patient sustained multiple injuries but no loss of consciousness was reported. Patient was heavily intoxicated with alcohol level is 320 here, which means that there was probably around 350 when he fell Patient was resuscitated and worked up according to trauma principles and found to have following injuries Left lower rib fractures with a small hemothorax and left lower lobe pulmonary contusion Splenic laceration with large subcapsular hematoma which was embolized in radiology department Left iliac wing nondisplaced fracture not requiring any further intervention 24 Hour Review/Hospital Course Patient has been stable since the time of injury Today's awake alert and oriented and remembers the event vaguely considering the level of intoxication Patient complaining about pain in the left chest and abdomen mainly left upper quadrant consistent with his injuries He is an alcoholic and has been started on the banana bag and Ativan protocol considering the likelihood of withdrawal Objective Vital Signs Date Time Temp Pulse Resp B/P Pulse Ox O2 Delivery O2 Flow Rate FiO2 10/01/16 11:57 20 10/01/16 11:32 85 175/99 100 Nasal Cannula 2 10/01/16 08:44 98.3 Result Diagram: 10/01/16 0238 10/01/16 0238 Imaging Last 24 hours Impressions Chest X-Ray 10/01/16 0000 Signed Impressions: Service Date/Time: Saturday, October 01, 2016 03:53 - CONCLUSION: No significant change trace consolidation and pleural fluid left lung base. No perceptible pneumothorax. Washington Champion MD Maxillofacial CT 09/30/161930 Signed Impressions: Service Date/Time: September 20:12 - CONCLUSION: 1. No acute fracture identified. Mucosal thickening present in the paranasal sinuses. Vitaly Palacios MD Head CT 09/30/161930 Signed Impressions: Service Date/Time: September 20:07 - CONCLUSION: 1. No acute intracranial abnormalities. Mucosal thickening in the paranasal sinuses. Vitaly Palacios MD Chest X-Ray 09/30/161930 Signed Impressions: Service Date/Time: September 17:40 - CONCLUSION: 1. Multiple upper left rib fractures. CT pending. No pneumothorax or effusion seen on plain film. Vitaly Palacios MD Chest CT 09/30/161930 Signed Impressions: Service Date/Time: September 20:18 - CONCLUSION: 1. Multiple left-sided rib fractures with mild left lung contusion and small left hemothorax. 2. A subcapsular hematoma of the spleen with some active contrast extravasation. 3. Negative for traumatic aortic injury. Vitaly Palacios MD Cervical Spine CT 09/30/161930 Signed Impressions: Service Date/Time: September 20:11 - CONCLUSION: Normal examination for a patient of this age. Vitaly Palacios MD Abdomen/Pelvis CT 09/30/161930 Signed Impressions: Service Date/Time: September 20:18 - CONCLUSION: 1. Splenic laceration with subcapsular hematoma measuring up to 3.2 cm in thickness and 8.8 cm in length. There is also a small amount of active contrast extravasation within the subcapsular splenic hematoma. No significant free intraperitoneal fluid. There is an extraperitoneal hematoma tracking down the left flank measuring about 11 mm in thickness. There is some edematous changes in the left lateral abdominal wall and some subcutaneous hemorrhage. 2. Lower left rib fractures with small left lower lobe lung contusion. 3. No other solid visceral injuries identified. 4. Mildly displaced fracture of left iliac wing. Vitaly Palacios MD Exam [employer] Awake alert oriented [place] Coma Scale 15 Motoric intact all 4 extremities Normal deep tendon reflexes no pathologic reflexes Hemodynamic/Cardiac Hemodynamically patient is intact holding hemoglobin/hematocrit Pulmonary/Respiratory Bilateral breath sounds decreased consistent with COPD and some splinting on the left side and patient's tender of the left lower ribs in the area of 8 9/10 ribs Chest x-ray tomorrow Abdomen/GI Nutrition Abdomen is soft with hypoactive bowel sounds tender in left mid abdomen and left upper quadrant with there is some voluntary guarding and rebound Bruising noted over the lateral flank consistent with described injuries of lower rib fractures and splenic laceration Splenic contusion/laceration is now contained and patient does not need any surgical intervention at this time Should he drop hemoglobin and rebleed from the spleen by either mew active bleed or rupture of the subcapsular hematoma then patient will not have re- embolization but will be taken to the operating room for splenectomy Renal/I&O Good urine output Assessment and Plan Attestation The exam, history, and the medical decision-making described in the above note were completed with the assistance of the mid-level provider. I reviewed and agree with the findings presented. I attest that I had a [id number] encounter with the patient on the same day, and personally performed and documented my assessment and findings in the medical record. Critical care time 40 minutes. Vera Govea MD Oct 01, 2016 14:27
[2016-10-01] MEDS ORDERED: NALOXONE HCL 0.4 MG/ML AMP IV PRN (14:30)
[2016-10-01] MEDS: PCA - TOTAL MG DILAUDID DELIVERED PER SHIFT OTHER SCH ×2 (14:30→22:11)
[2016-10-01] MEDS ORDERED: MULTIVITAMIN INJ 10 ML, THIAMINE INJ 100 MG, FOLIC ACID INJ 1 MG in SODIUM CHLORID 0.9%... IV ONE (16:30)
--- NOTE | 2016-10-01 18:07 | EKG ---
Date Performed: 09/30/2016 Time Performed: 22:01:27 PTAGE: 41 years EKG: Sinus rhythm MODERATE VOLTAGE CRITERIA FOR LVH, CONSIDER NORMAL VARIANT. BORDERLINE ECG NO PREVIOUS TRACING DOCTOR: Marvin Cloud Interpretating Date/Time 10/01/2016 18:06:14
[2016-10-01] MEDS: MAGNESIUM HYDROXIDE SUSP 30 ML CUP PO SCH (20:34)
[2016-10-01] MEDS: HYDROmorphone HCL PCA 6 MG/30 ML IV SCH ×2 (21:06→21:49)
[2016-10-02] VITALS (13 sets, daily range): BP systolic 132–159; BP diastolic 83–99; PULSE 80–100; RESP 18–22; TEMP 97.6–98.6; O2SAT 92–99
[2016-10-02] MEDS: CHLORHEXIDINE GLUCONATE 2 % 1 PACK (2 CLOTHS) TOP SCH (00:49)
--- NOTE | 2016-10-02 05:20 | RADRPT ---
EXAM DATE/TIME: 10/02/2016 04:35 [facility] COMPARISON: CHEST SINGLE AP, October 01, 2016, 3:53. INDICATIONS : Chest pain. MEDICAL HISTORY : None. SURGICAL HISTORY : None. ENCOUNTER: Subsequent ACUITY: 3 days PAIN SCORE: Non-responsive. LOCATION: Bilateral chest FINDINGS: Large area of consolidation developing in the left mid and lower lung. Small left pleural effusion is also likely. Right lung remains reasonably clear. CONCLUSION: Left mid and lower lung consolidation much worse. Washington Champion MD on October 02, 2016 at 5:17 Board Certified Radiologist. This report was verified electronically.
[2016-10-02 05:26] LABS: MEAN CELL VOLUME 96.1 FL (80.0-100.0); MEAN CORPUSCULAR HEMOGLOBIN 32.9 PG (27.0-34.0); MEAN CORPUSCULAR HGB CONC 34.2 % (32.0-36.0); PLATELET COUNT 143 TH/MM3 (150-450); RED BLOOD COUNT 2.92 MIL/MM3 (4.50-5.90); RED CELL DISTRIBUTION WIDTH 12.3 % (11.6-17.2); REVIEW FLAG FINAL; WHITE BLOOD COUNT 13.8 TH/MM3 (4.0-11.0)
[2016-10-02 05:45] LABS: BICARBONATE 28.2 MEQ/L (21.0-32.0); POTASSIUM 4.1 MEQ/L (3.5-5.1)
[2016-10-02] MEDS: PCA - TOTAL MG DILAUDID DELIVERED PER SHIFT OTHER SCH ×3 (05:45→22:00)
[2016-10-02] MEDS: SODIUM CHLOR 0.9% 1000 ML INJ 1,000 ML IV SCH ×2 (08:09→15:15)
[2016-10-02] MEDS: BACITRACIN TOP OINT 15 GM TUBE TOP SCH ×2 (09:00→20:19)
[2016-10-02] MEDS: FOLIC ACID 1 MG TAB PO SCH (09:02)
[2016-10-02] MEDS: THIAMINE HCL 100 MG TAB PO SCH (09:02)
[2016-10-02] MEDS: DOCUSATE SODIUM 50 MG/SENNA 8.6 MG TAB PO SCH ×2 (09:02→20:19)
[2016-10-02] MEDS: MULTIVITAMIN TAB PO SCH (09:02)
[2016-10-02] MEDS ORDERED: ceFAZolin 2 GM PREMIX 50 ML IV SCH (11:00)
--- NOTE | 2016-10-02 11:01 | HHI.CCPN ---
Subjective Brief History 41-year-old male came his prior T1 trauma alert after he fell from a roof about 10-12 feet off the ground and landed on a grassy surface. Patient sustained multiple injuries but no loss of consciousness was reported. Patient was heavily intoxicated with alcohol level is 320 here, which means that there was probably around 350 when he fell Patient was resuscitated and worked up according to trauma principles and found to have following injuries Left lower rib fractures with a small hemothorax and left lower lobe pulmonary contusion Splenic laceration with large subcapsular hematoma which was embolized in radiology department Left iliac wing nondisplaced fracture not requiring any further intervention 24 Hour Review/Hospital Course Patient has been stable since the time of injury Today's awake alert and oriented and remembers the event vaguely considering the level of intoxication Patient complaining about pain in the left chest and abdomen mainly left upper quadrant consistent with his injuries He is an alcoholic and has been started on the banana bag and Ativan protocol considering the likelihood of withdrawal 10/02/16 Patient with splenic laceration and subcapsular hematoma underwent radiologic embolization This morning patient is way more tender with pain in the left shoulder and classic Ahmadi sign Abdomen is distended firm with rebound and guarding in the entire abdomen and all 4 quadrants Patient is short of breath and developing left pleural effusion /hemothorax Hemoglobin dropped could be associated with hydration however change in patient status with symptomatic differentiation is that of enlarging splenic hematoma and peritonitis We will repeat CT scan with IV contrast Objective Vital Signs Date Time Temp Pulse Resp B/P Pulse Ox O2 Delivery O2 Flow Rate FiO2 10/02/16 10:00 92 10/02/16 09:07 95 Nasal Cannula 2.00 10/02/16 08:00 98.5 21 157/91 Intake and Output 10/01/16 10/01/16 10/02/16 08:00 16:00 00:00 Intake Total 1062 ml 1489 ml Output Total 500 ml 500 ml 500 ml Balance -500 ml 562 ml 989 ml Result Diagram: 10/02/1643910/02/16 044 Imaging Last 24 hours Impressions Chest X-Ray 10/02/16 0600 Signed Impressions: Service Date/Time: Sunday, October 02, 2016 04:35 - CONCLUSION: Left mid and lower lung consolidation much worse. Washington Champion MD Exam [employer] ENG[employer] Awake alert oriented Hemodynamic/Cardiac Hemodynamically intact but with dropping hemoglobin Pulmonary/Respiratory Bilateral breath sounds very decrease of the left side clearly with the pleural effusion in this case likely hemothorax Significant left shoulder pain which is referred phrenic nerve pain Ahmadi sign Abdomen/GI Nutrition Abdomen is firm with rebound and guarding in all 4 quadrants upper quadrants more than lower Patient is distended and very tender especially left upper quadrant CT of abdomen and pelvis repeat stat Hematologic Hemoglobin drop can be associated with hydration however 4 g drop is more likely to be associated with either bleeding into the splenic hematoma or possibly even free blood in the abdomen All this associated with clinical findings warrants repeat CT scan and possibly splenectomy and washout Assessment and Plan Attestation The exam, history, and the medical decision-making described in the above note were completed with the assistance of the mid-level provider. I reviewed and agree with the findings presented. I attest that I had a [id number] encounter with the patient on the same day, and personally performed and documented my assessment and findings in the medical record. Critical care time 40 minutes. Vera Govea MD Oct 02, 2016 11:01
[2016-10-02] MEDS ORDERED: IOHEXOL 350 MG/ML 10 ML VIAL (for RAD DIAG) IV ONE (11:39)
[2016-10-02] MEDS: HYDROmorphone HCL PCA 6 MG/30 ML IV SCH ×2 (11:54→15:44)
--- NOTE | 2016-10-02 11:55 | RADRPT ---
EXAM DATE/TIME: 10/02/2016 11:14 [facility] COMPARISON: ANGIOGRAM, SPLENIC ARTERY, September 30, 2016, 23:05. INDICATIONS : Splenic laceration. IV CONTRAST: 96 cc Omnipaque 350 (iohexol) IV ORAL CONTRAST: No oral contrast ingested. RADIATION DOSE: 4.70 CTDIvol (mGy) MEDICAL HISTORY : None SURGICAL HISTORY : None. ENCOUNTER: Initial ACUITY: 2 days PAIN SCALE: 7/10 LOCATION: Right upper quadrant TECHNIQUE: Volumetric scanning of the abdomen was performed. Using automated exposure control and adjustment of the mA and/or kV according to patient size, radiation dose was kept as low as reasonably achievable to obtain optimal diagnostic quality images. FINDINGS: LOWER LUNGS: Left basal consolidation and small left pleural effusion/hemothorax. LIVER: Homogeneous density without lesion. There is no dilation of the biliary tree. No calcified gallstones . SPLEEN: There is significant decreased perfusion of the spleen. Minimal hyperdensity is noted suggesting hemo rrhage. Moderate amount of hemoperitoneum.. PANCREAS: There is decreased perfusion of the pancreatic tail. KIDNEYS: Normal in size and shape. There is no mass, stone, or hydronephrosis. ADRENAL GLANDS: Within normal limits. AORTA/RETROPERITONEAL: There is no aneurysm or lymphadenopathy. BOWEL/MESENTERY: The stomach and visualized small and large bowel demonstrate no abnormality. ABDOMINAL WALL: Within normal limits. MUSCULOSKELETAL: Left lower rib fractures. POST CONTRAST: No abnormal areas of enhancement are seen. CONCLUSION: 1. Significant decreased perfusion of the spleen. There is some high density material in the splenic region suggesting some minimal hemorrhage. 2. Moderate amount of hemoperitoneum. 3. There is some decreased perfusion of the pancreatic tail. 4. Left lower rib fractures. Vasile Danielson MD on October 02, 2016 at 11:50 Board Certified Radiologist. This report was verified electronically.
[2016-10-02] MEDS ORDERED: NORMOSOL R INJ 1,000 ML IV ONE (12:00)
[2016-10-02] MEDS ORDERED: NEOSTIGMINE 3 MG/3 ML SYR IV ONE (12:00)
[2016-10-02] MEDS ORDERED: LACTATED RINGER'S 1000 ML INJ 3,000 ML IV ONE (12:00)
[2016-10-02] MEDS ORDERED: PHENYLEPH/NS 1000 MCG/10 ML SYR IV ONE (12:00)
[2016-10-02] MEDS ORDERED: ONDANSETRON HCL 4 MG/2 ML VIAL IV PUSH ONE (12:00)
[2016-10-02] MEDS ORDERED: PROPOFOL 200 MG/20 ML AMP IV ONE (12:00)
[2016-10-02] MEDS ORDERED: BUPIVACAINE/EPINEPHRINE 0.5% PF 30 ML VIAL ONE (12:28)
[2016-10-02] MEDS ORDERED: FAMOTIDINE 20 MG/2 ML VIAL ONE (12:36)
[2016-10-02] MEDS ORDERED: fentaNYL CITRATE 250 MCG/5 ML AMP ONE (12:36)
[2016-10-02] MEDS ORDERED: MIDAZOLAM HCL 2 MG/2 ML VIAL ONE (12:36)
[2016-10-02] MEDS ORDERED: HYDROmorphone HCL PF 2 MG/ML VIAL ONE (13:05)
[2016-10-02] MEDS ORDERED: *LABETALOL HCL 100 MG/20 ML VIAL PERIprocedural Use ONLY ONE (14:26)
[2016-10-02] MEDS ORDERED: *RESP: ALBUTEROL 2.5 MG/3 ML NEB (PRN) PERIprocedural Use ONLY NEB ONE (14:50)
[2016-10-02] MEDS ORDERED: *morphine SULFATE 8 MG/ML PERIprocedure ONLY ONE (14:58)
[2016-10-02] MEDS ORDERED: NALOXONE HCL 0.4 MG/ML AMP IV PRN ×3 (15:15→15:30)
[2016-10-02] MEDS ORDERED: SODIUM CHLORIDE 0.9% FLUSH 5 ML FLUSH IVF PRN (15:15)
[2016-10-02] MEDS ORDERED: Post-op Orders (for Pharmacy) MISC XX ONE (15:15)
[2016-10-02] MEDS ORDERED: DO NOT ADM ANY ANTICOAGULANT DRUGS XX PRN (15:15)
[2016-10-02] MEDS ORDERED: HYDROmorphone HCL PCA 6 MG/30 ML IV SCH (15:15)
--- NOTE | 2016-10-02 16:13 | RADRPT ---
EXAM DATE/TIME: 10/02/2016 14:59 [facility] COMPARISON: CHEST SINGLE AP, October 02, 2016, 4:35. INDICATIONS : Chest tube placement. MEDICAL HISTORY : None. SURGICAL HISTORY : None. ENCOUNTER: Subsequent ACUITY: 2 days PAIN SCORE: Non-responsive. LOCATION: Bilateral chest FINDINGS: Left chest tube present without significant pneumothorax. Soft tissue drain also projects over lower chest. Left-sided airspace disease slightly improved from earlier exam the left effusion decreased. R ight lung change with minimal right basilar opacity. Nasogastric tube tip in stomach. CONCLUSION: 1. Placement of left chest tube and left soft tissue drain with decrease in size of left effusion sin ce earlier exam. Slight improvement in left-sided airspace disease. No significant pneumothorax. Vitaly Palacios MD on October 02, 2016 at 16:09 Board Certified Radiologist. This report was verified electronically.
[2016-10-02] MEDS: metroNIDAZOLE 500 MG INJ 100 ML IV SCH (16:15)
[2016-10-02] MEDS: PANTOPRAZOLE SODIUM 40 MG VIAL IV SCH (16:15)
[2016-10-02] MEDS: CLINDAMYCIN INJ 600 MG in SODIUM CHLORIDE 0.9% INJ 100 ML IV SCH (17:00)
[2016-10-02] MEDS: MAGNESIUM HYDROXIDE SUSP 30 ML CUP PO SCH (20:19)
[2016-10-02] MEDS: SODIUM CHLORIDE 0.9% FLUSH 5 ML FLUSH IVF SCH (20:19)
[2016-10-02] MEDS ORDERED: PCA - TOTAL MG DILAUDID DELIVERED PER SHIFT OTHER SCH (22:00)
[2016-10-03] VITALS (12 sets, daily range): BP systolic 134–165; BP diastolic 74–89; PULSE 92–107; RESP 18–26; TEMP 96.8–99.5; O2SAT 94–98
[2016-10-03] MEDS: CHLORHEXIDINE GLUCONATE 2 % 1 PACK (2 CLOTHS) TOP SCH (04:00)
[2016-10-03] MEDS: CLINDAMYCIN INJ 600 MG in SODIUM CHLORIDE 0.9% INJ 100 ML IV SCH ×2 (04:46→08:02)
[2016-10-03] MEDS: SODIUM CHLOR 0.9% 1000 ML INJ 1,000 ML IV SCH ×2 (04:47→11:46)
[2016-10-03] MEDS: metroNIDAZOLE 500 MG INJ 100 ML IV SCH ×2 (04:48→08:01)
[2016-10-03 05:22] LABS: HEMATOCRIT 26.8 % (39.0-51.0); MEAN CELL VOLUME 91.8 FL (80.0-100.0); MEAN CORPUSCULAR HEMOGLOBIN 32.2 PG (27.0-34.0); MEAN CORPUSCULAR HGB CONC 35.1 % (32.0-36.0); PLATELET COUNT 126 TH/MM3 (150-450); RED BLOOD COUNT 2.92 MIL/MM3 (4.50-5.90); RED CELL DISTRIBUTION WIDTH 14.8 % (11.6-17.2); REVIEW FLAG FINAL; WHITE BLOOD COUNT 13.8 TH/MM3 (4.0-11.0)
[2016-10-03 05:52] LABS: BICARBONATE 27.4 MEQ/L (21.0-32.0); POTASSIUM 3.9 MEQ/L (3.5-5.1)
[2016-10-03] MEDS: PCA - TOTAL MG DILAUDID DELIVERED PER SHIFT OTHER SCH ×3 (06:00→20:48)
--- NOTE | 2016-10-03 06:08 | RADRPT ---
EXAM DATE/TIME: 10/03/2016 05:09 [facility] COMPARISON: CHEST SINGLE AP, October 02, 2016, 14:59. INDICATIONS : Evaluate left side chest tube. MEDICAL HISTORY : None. Left hemothorax SURGICAL HISTORY : Left side chest tube ENCOUNTER: Subsequent ACUITY: 3 days PAIN SCORE: 6/10 LOCATION: Bilateral chest FINDINGS: Left chest tube remains in place. Tiny apical pneumothorax noted. Patchy consolidation and small effu [place] left lung base not significantly changed. Surgical drain again seen left upper quadrant of the abdomen. Nasogastric tube remains in place, tip in the stomach. CONCLUSION: No significant change. Tiny apical pneumothorax with basilar consolidation and small effusion/hemotho rax again noted on the left. Washington Champion MD on October 03, 2016 at 6:05 Board Certified Radiologist. This report was verified electronically.
[2016-10-03] MEDS: FOLIC ACID 1 MG TAB PO SCH (08:01)
[2016-10-03] MEDS: SODIUM CHLORIDE 0.9% FLUSH 5 ML FLUSH IVF SCH ×2 (08:01→20:48)
[2016-10-03] MEDS: DOCUSATE SODIUM 50 MG/SENNA 8.6 MG TAB PO SCH ×2 (08:01→20:33)
[2016-10-03] MEDS: MULTIVITAMIN TAB PO SCH (08:01)
[2016-10-03] MEDS: THIAMINE HCL 100 MG TAB PO SCH (08:01)
[2016-10-03] MEDS: BACITRACIN TOP OINT 15 GM TUBE TOP SCH ×2 (09:02→20:48)
[2016-10-03] MEDS ORDERED: LACTULOSE SYRUP 20 GM/30 ML CUP PO ONE (13:30)
--- NOTE | 2016-10-03 13:38 | HHI.CCPN ---
Subjective Brief History 41-year-old male came his prior T1 trauma alert after he fell from a roof about 10-12 feet off the ground and landed on a grassy surface. Patient sustained multiple injuries but no loss of consciousness was reported. Patient was heavily intoxicated with alcohol level is 320 here, which means that there was probably around 350 when he fell Patient was resuscitated and worked up according to trauma principles and found to have following injuries Left lower rib fractures with a small hemothorax and left lower lobe pulmonary contusion Splenic laceration with large subcapsular hematoma which was embolized in radiology department Left iliac wing nondisplaced fracture not requiring any further intervention 24 Hour Review/Hospital Course Patient has been stable since the time of injury Today's awake alert and oriented and remembers the event vaguely considering the level of intoxication Patient complaining about pain in the left chest and abdomen mainly left upper quadrant consistent with his injuries He is an alcoholic and has been started on the banana bag and Ativan protocol considering the likelihood of withdrawal 10/02/16 Patient with splenic laceration and subcapsular hematoma underwent radiologic embolization This morning patient is way more tender with pain in the left shoulder and classic Ahmadi sign Abdomen is distended firm with rebound and guarding in the entire abdomen and all 4 quadrants Patient is short of breath and developing left pleural effusion /hemothorax Hemoglobin dropped could be associated with hydration however change in patient status with symptomatic differentiation is that of enlarging splenic hematoma and peritonitis We will repeat CT scan with IV contrast 10/03/16 Patient with splenic laceration the lower rib fractures Underwent yesterday splenectomy with washout of the abdomen and placement of a left chest tube Today patient is stable abdomen is soft with hypoactive bowel sounds Incision is clean and dry Chest tube drainage about 600 cc since the insertion and now only serosanguineous Patient will keep the NG tube will be transferred to floor today Objective Vital Signs Date Time Temp Pulse Resp B/P Pulse Ox O2 Delivery O2 Flow Rate FiO2 10/03/16 12:00 94 10/03/16 12:00 99.4 21 135/74 95 10/03/16 07:27 Nasal Cannula 2.00 Intake and Output 10/02/16 10/02/16 10/03/16 08:00 16:00 00:00 Intake Total 1580 ml 4374 ml 1690 ml Output Total 700 ml 3025 ml 1300 ml Balance 880 ml 1349 ml 390 ml Result Diagram: 10/03/16 0425 10/03/16 0425 Imaging Last 24 hours Impressions Chest X-Ray 10/03/16 0600 Signed Impressions: Service Date/Time: Monday, October 03, 2016 05:09 - CONCLUSION: No significant change. Tiny apical pneumothorax with basilar consolidation and small effusion/hemothorax again noted on the left. Washington Champion MD Assessment and Plan Attestation The exam, history, and the medical decision-making described in the above note were completed with the assistance of the mid-level provider. I reviewed and agree with the findings presented. I attest that I had a [id number] encounter with the patient on the same day, and personally performed and documented my assessment and findings in the medical record. Critical care time 35 minutes. Vera Govea MD Oct 03, 2016 13:38
[2016-10-03] MEDS: PANTOPRAZOLE SODIUM 40 MG VIAL IV SCH (17:03)
[2016-10-03] MEDS: HYDROmorphone HCL PCA 6 MG/30 ML IV SCH (17:16)
[2016-10-04] VITALS (9 sets, daily range): BP systolic 156–172; BP diastolic 82–96; PULSE 69–96; RESP 16–20; TEMP 96–98.5; O2SAT 95–100
[2016-10-04] MEDS: SODIUM CHLOR 0.9% 1000 ML INJ 1,000 ML IV SCH ×2 (00:58→12:48)
[2016-10-04] MEDS: CHLORHEXIDINE GLUCONATE 2 % 1 PACK (2 CLOTHS) TOP SCH (04:00)
[2016-10-04 05:10] LABS: AUTOMATED NEUTROPHIL # 12.8 TH/MM3 (1.8-7.7); BASOPHIL % 0.3 % (0.0-2.0); EOSINOPHIL # 0.1 TH/MM3 (0-0.4); EOSINOPHIL % 0.5 % (0.0-4.0); HEMATOCRIT 26.8 % (39.0-51.0); HEMO FLAGS DIFF FINAL; LYMPH % 7.1 % (9.0-44.0); LYMPHOCYTE # 1.1 TH/MM3 (1.0-4.8); MEAN CELL VOLUME 92.9 FL (80.0-100.0); MEAN CORPUSCULAR HEMOGLOBIN 32.3 PG (27.0-34.0); MEAN CORPUSCULAR HGB CONC 34.8 % (32.0-36.0); MONO % 6.8 % (0.0-8.0); NEUT % 85.3 % (16.0-70.0); PLATELET COUNT 182 TH/MM3 (150-450); RED BLOOD COUNT 2.89 MIL/MM3 (4.50-5.90); RED CELL DISTRIBUTION WIDTH 14.6 % (11.6-17.2)
[2016-10-04 05:28] LABS: ANION GAP 13 MEQ/L (5-15); AST (GOT) 64 U/L (15-37); BICARBONATE 24.3 MEQ/L (21.0-32.0); BLOOD UREA NITROGEN 9 MG/DL (7-18); CHLORIDE 101 MEQ/L (98-107); GLOMERULAR FILTRATION RATE 224 ML/MIN (>89); POTASSIUM 3.6 MEQ/L (3.5-5.1); SODIUM (NA) 138 MEQ/L (136-145)
[2016-10-04 05:31] LABS: ALKALINE PHOSPHATASE 62 U/L (45-117); ALT (GPT) 41 U/L (12-78); TOTAL BILIRUBIN ADULT 0.6 MG/DL (0.2-1.0)
[2016-10-04] MEDS: PCA - TOTAL MG DILAUDID DELIVERED PER SHIFT OTHER SCH ×3 (05:46→22:00)
--- NOTE | 2016-10-04 07:01 | RADRPT ---
EXAM DATE/TIME: 10/04/2016 05:35 [facility] COMPARISON: CHEST SINGLE AP, October 03, 2016, 5:09. INDICATIONS : Pain left upper chest, evaluate hemothorax and left chest tube MEDICAL HISTORY : hemothorax SURGICAL HISTORY : chest tube ENCOUNTER: Subsequent ACUITY: 4 - 6 days PAIN SCORE: 6/10 LOCATION: Left chest FINDINGS: The cardiac silhouette is enlarged in transverse diameter. There is left lower lobe atelectasis versu s pneumonia. Left chest tube is in place with small left apical pneumothorax. A nasogastric tube is i n place with its tip in the stomach. CONCLUSION: 1. Tiny left apical pneumothorax without tension Adria Morillo MD on October 04, 2016 at 7:00 Board Certified Radiologist. This report was verified electronically.
[2016-10-04] MEDS ORDERED: WALKER WHEELS/F1 MIS (08:30)
--- NOTE | 2016-10-04 08:34 | PD.ORT.PN ---
Subjective Subjective Remarks Pain controlled. Anxious to have chest tube and NG tube removed Objective Vitals Vital Signs Date Time Temp Pulse Resp B/P Pulse Ox O2 Delivery O2 Flow Rate FiO2 10/04/16 07:27 97.5 90 18 172/96 99 10/04/16 05:46 18 10/04/16 05:43 18 10/04/16 04:00 98.5 96 20 156/95 100 10/04/16 00:00 97.8 69 20 169/94 96 10/03/16 21:03 Nasal Cannula 3.00 10/03/16 20:48 18 10/03/16 20:32 18 10/03/16 20:32 94 Nasal Cannula 3.00 10/03/16 20:00 96.8 96 20 162/89 94 10/03/16 17:46 19 10/03/16 17:16 18 10/03/16 16:00 98.2 98 18 154/85 96 10/03/16 15:15 Nasal Cannula 2.00 10/03/16 14:31 20 10/03/16 14:00 93 10/03/16 12:00 94 10/03/16 12:00 99.4 94 21 135/74 95 10/03/16 10:00 107 I/O 10/03/16 10/03/16 10/03/16 10/04/16 10/04/16 10/04/16 07:00 15:00 23:00 07:00 15:00 23:00 Intake Total 800 ml 755 ml 550 ml 703 ml Output Total 1125 ml 855 ml 245 ml 1075 ml Balance -325 ml -100 ml 305 ml -372 ml Intake Oral 0 ml 0 ml 0 ml 0 ml IV Total 800 ml 755 ml 550 ml 703 ml Output Urine Total 900 ml 650 ml 0 ml 850 ml Stool Total 0 ml 0 ml Gastric Drainage Total 0 ml 0 ml 150 ml 50 ml Chest Tube Drainage Total 150 ml 150 ml 60 ml 150 ml Drainage Total 75 ml 55 ml 35 ml 25 ml # Voids 2 # Bowel Movements 0 0 Result Diagram: 10/04/16 0339 10/04/16338 Imaging Last 72 hours Impressions Chest X-Ray 10/04/16 0600 Signed Impressions: Service Date/Time: Tuesday, October 04, 2016 05:35 - CONCLUSION: 1. Tiny left apical pneumothorax without tension Adria Morillo MD Chest X-Ray 10/03/16 0600 Signed Impressions: Service Date/Time: Monday, October 03, 2016 05:09 - CONCLUSION: No significant change. Tiny apical pneumothorax with basilar consolidation and small effusion/hemothorax again noted on the left. Washington Champion MD Chest X-Ray 10/02/16 0600 Signed Impressions: Service Date/Time: Sunday, October 02, 2016 04:35 - CONCLUSION: Left mid and lower lung consolidation much worse. Washington Champion MD Chest X-Ray 10/02/16 0000 Signed Impressions: Service Date/Time: Sunday, October 02, 2016 14:59 - CONCLUSION: 1. Placement of left chest tube and left soft tissue drain with decrease in size of left effusion since earlier exam. Slight improvement in left-sided airspace disease. No significant pneumothorax. Vitaly Palacios MD Abdomen CT 10/02/16 0000 Signed Impressions: Service Date/Time: Sunday, October 02, 2016 11:14 - CONCLUSION: 1. Significant decreased perfusion of the spleen. There is some high density material in the splenic region suggesting some minimal hemorrhage. 2. Moderate amount of hemoperitoneum. 3. There is some decreased perfusion of the pancreatic tail. 4. Left lower rib fractures. Vasile Danielson MD Last 24 hours Impressions Chest X-Ray 10/04/16599 Signed Impressions: Service Date/Time: Tuesday, October 04, 2016 05:35 - CONCLUSION: 1. Tiny left apical pneumothorax without tension Adria Morillo MD Objective Remarks Left hemipelvis; pain to palpation over iliac wing. Minimal pain with passive range of motion of hip. Distally neurovascularly intact left lower extremity with strong dorsiflexion plantar flexion of foot Assessment & Plan Assessment and Plan Left iliac wing fracture Nonoperative treatment Weightbearing as tolerated left lower extremity Follow-up with Dr. Goss or [facility] in 2 weeks for repeat x-rays Medical management JAYCE OMALLEY PA-C Oct 04, 2016 08:34
[2016-10-04] MEDS: LACTULOSE SYRUP 20 GM/30 ML CUP PO SCH ×2 (09:00→10:03)
[2016-10-04] MEDS: SODIUM CHLORIDE 0.9% FLUSH 5 ML FLUSH IVF SCH ×2 (09:00→22:26)
[2016-10-04] MEDS: BACITRACIN TOP OINT 15 GM TUBE TOP SCH ×2 (09:00→21:00)
[2016-10-04] MEDS: DOCUSATE SODIUM 50 MG/SENNA 8.6 MG TAB PO SCH ×3 (09:00→22:26)
--- NOTE | 2016-10-04 11:46 | HHI.PR ---
Subjective Subjective Notes PTD: 4 Patient sitting up in bed, asking for the NG tube to be removed. Objective Vitals/I&O Vital Signs Date Time Temp Pulse Resp B/P Pulse Ox O2 Delivery O2 Flow Rate FiO2 10/04/16 08:45 96 21 10/04/16 07:27 97.5 90 18 172/96 10/03/16 21:03 Nasal Cannula 3.00 Labs Laboratory Tests Test 10/04/16 03:39 White Blood Count 15.0 Red Blood Count 2.89 Hemoglobin 9.3 Hematocrit 26.8 Mean Corpuscular Volume 92.9 Mean Corpuscular Hemoglobin 32.3 Mean Corpuscular Hemoglobin 34.8 Concent Red Cell Distribution Width 14.6 Platelet Count 182 Mean Platelet Volume 8.8 Neutrophils (%) (Auto) 85.3 Lymphocytes (%) (Auto) 7.1 Monocytes (%) (Auto) 6.8 Eosinophils (%) (Auto) 0.5 Basophils (%) (Auto) 0.3 Neutrophils # (Auto) 12.8 Lymphocytes # (Auto) 1.1 Monocytes # (Auto) 1.0 Eosinophils # (Auto) 0.1 Basophils # (Auto) 0.0 CBC Comment DIFF FINAL Differential Comment Sodium Level 138 Potassium Level 3.6 Chloride Level 101 Carbon Dioxide Level 24.3 Anion Gap 13 Blood Urea Nitrogen 9 Creatinine 0.42 Estimat Glomerular Filtration 224 Rate Random Glucose 73 Calcium Level 8.3 Total Bilirubin 0.6 Aspartate Amino Transf 64 (AST/SGOT) Alanine Aminotransferase 41 (ALT/SGPT) Alkaline Phosphatase 62 Total Protein 5.8 Albumin 2.1 Lipase 160 Radiology Last Impressions Chest X-Ray 10/04/16 0600 Signed Impressions: Service Date/Time: Tuesday, October 04, 2016 05:35 - CONCLUSION: 1. Tiny left apical pneumothorax without tension Adria Morillo MD Abdomen CT 10/02/16 0000 Signed Impressions: Service Date/Time: Sunday, October 02, 2016 11:14 - CONCLUSION: 1. Significant decreased perfusion of the spleen. There is some high density material in the splenic region suggesting some minimal hemorrhage. 2. Moderate amount of hemoperitoneum. 3. There is some decreased perfusion of the pancreatic tail. 4. Left lower rib fractures. Vasile Danielson MD Maxillofacial CT 09/30/16 1931 Signed Impressions: Service Date/Time: September 20:12 - CONCLUSION: 1. No acute fracture identified. Mucosal thickening present in the paranasal sinuses. Vitaly Palacios MD Head CT 09/30/161930 Signed Impressions: Service Date/Time: September 20:07 - CONCLUSION: 1. No acute intracranial abnormalities. Mucosal thickening in the paranasal sinuses. Vitaly Palacios MD Chest CT 09/30/161930 Signed Impressions: Service Date/Time: September 20:18 - CONCLUSION: 1. Multiple left-sided rib fractures with mild left lung contusion and small left hemothorax. 2. A subcapsular hematoma of the spleen with some active contrast extravasation. 3. Negative for traumatic aortic injury. Vitaly Palacios MD Cervical Spine CT 09/30/161930 Signed Impressions: Service Date/Time: September 20:11 - CONCLUSION: Normal examination for a patient of this age. Vitaly Palacios MD Abdomen/Pelvis CT 09/30/161930 Signed Impressions: Service Date/Time: September 20:18 - CONCLUSION: 1. Splenic laceration with subcapsular hematoma measuring up to 3.2 cm in thickness and 8.8 cm in length. There is also a small amount of active contrast extravasation within the subcapsular splenic hematoma. No significant free intraperitoneal fluid. There is an extraperitoneal hematoma tracking down the left flank measuring about 11 mm in thickness. There is some edematous changes in the left lateral abdominal wall and some subcutaneous hemorrhage. 2. Lower left rib fractures with small left lower lobe lung contusion. 3. No other solid visceral injuries identified. 4. Mildly displaced fracture of left iliac wing. Vitaly Palacios MD Splenic Arteriogram 09/30/16 0000 Signed Impressions: Service Date/Time: September 23:05 - CONCLUSION: 1. Uncomplicated splenic embolization Adria Morillo MD Narrative Exam GENERAL: This is a 41-year-old male sitting up in bed in no distress. SKIN: Warm and dry. HEAD: Atraumatic. Normocephalic. EYES: PERRLA ENT: NG tube in place to low intermittent wall suction. No nasal bleeding or discharge. Mucous membranes pink and moist. NECK: Trachea midline. No JVD. CARDIOVASCULAR: Regular rate and rhythm. RESPIRATORY: No accessory muscle use. Lungs are clear to auscultation. Breath sounds equal bilaterally. No distress or dyspnea. LEFT chest tube and placed to Pleur-evac drainage system decreased to waterseal. GASTROINTESTINAL: BS + x 4 quads. Abdomen soft, non-tender, nondistended. MUSCULOSKELETAL: Extremities without cyanosis, or edema. + peripheral pulses x 4 extremities. Warm with good capillary refill and sensation. MAEW. NEUROLOGICAL: Awake and alert. Normal speech and pattern. A/P Problem List: (1) Multiple rib fractures (2) Splenic laceration (3) Pelvic fracture Assessment and Plan [place]: This is a 41-year-old male who sustained a fall from approximately 20 feet. + EtOH. No LOC. PMHx: ETOH, tobacco and cannabis abuse. INJURIES: RIGHT temporal lac (tori) LEFT lung contusion LEFT hemothorax Multiple LEFT rib fractures LEFT iliac wing fracture (non-op) splenic lac Procedures: 10/01: Splenic embolization with IR 10/02: Spleenectomy and LEFT CT placement for hemothorax Consults: CCM, orthopedics. Diet: Advance to full liquid diet. Encourage good po intake with each meal. Pulmonary: Encourage good pulmonary toileting. IS at bedside and pt encouraged to use. Rationale for use explained to patient, and verbalized understanding. LEFT CT decreased to water seal today. IVF decreased to 50 cc/hr. Remove NGT today. 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 [place] po. (Ativan) Add Lisinopril 10 mg po QD. Activity: OOB with binder. PT and OT ordered. (WBAT LLE) GI prophylaxis: Protonix IV. Bowel regimen: Jo-Ann-colace and MOM. Lactulose QD. 0 BM. DVT prophylaxis: Mechanical VTE with SCDs. Chemical management TBD. DC Planning: Case management consulted for assistance with final discharge disposition. Post splenectomy vaccines scheduled for Tuesday. Emotional support provided to patient and family at bedside and plan of care discussed. Discussed with RN at bedside. Patient is hemodynamically stable and being managed on the med/surg floor. Problem Qualifiers (1) Multiple rib fractures: Qualified Code: S22.42XA - Closed fracture of multiple ribs of left side, initial encounter (2) Splenic laceration: Qualified Code: S36.039A - Splenic laceration, initial encounter (3) Pelvic fracture: Rashmi Machuca Oct 04, 2016 11:46
[2016-10-04] MEDS ORDERED: LISINOPRIL 10 MG TAB PO SCH (12:15)
[2016-10-04] MEDS: PANTOPRAZOLE SODIUM 40 MG VIAL IV SCH (16:48)
[2016-10-05] VITALS: BP 160/80; PULSE 86; RESP 20; TEMP 97; O2SAT 94
[2016-10-05] MEDS: CHLORHEXIDINE GLUCONATE 2 % 1 PACK (2 CLOTHS) TOP SCH (04:00)
[2016-10-05] MEDS: PCA - TOTAL MG DILAUDID DELIVERED PER SHIFT OTHER SCH ×3 (04:32→20:27)
--- NOTE | 2016-10-05 06:49 | RADRPT ---
EXAM DATE/TIME: 10/05/2016 05:21 [facility] COMPARISON: CHEST SINGLE AP, October 04, 2016, 5:35. INDICATIONS : Chest pain, coughing, evaluate left chest tube MEDICAL HISTORY : hemothorax SURGICAL HISTORY : chest tube ENCOUNTER: Subsequent ACUITY: 1 week PAIN SCORE: 6/10 LOCATION: Left chest FINDINGS: Tiny apical pneumothorax remains without tension. Chest tube is in place. There is left lower lobe at electasis versus pneumonia. The right lung is free of acute parenchymal opacity. CONCLUSION: 1. Tiny left apical pneumothorax Adria Morillo MD on October 05, 2016 at 6:47 Board Certified Radiologist. This report was verified electronically.
[2016-10-05 06:56] LABS: AUTOMATED NEUTROPHIL # 10.5 TH/MM3 (1.8-7.7); BASOPHIL # 0.1 TH/MM3 (0-0.2); BASOPHIL % 0.5 % (0.0-2.0); EOSINOPHIL # 0.2 TH/MM3 (0-0.4); EOSINOPHIL % 1.2 % (0.0-4.0); HEMATOCRIT 25.4 % (39.0-51.0); HEMO FLAGS DIFF FINAL; LYMPH % 11.9 % (9.0-44.0); LYMPHOCYTE # 1.6 TH/MM3 (1.0-4.8); MEAN CELL VOLUME 91.4 FL (80.0-100.0); MEAN CORPUSCULAR HEMOGLOBIN 32.5 PG (27.0-34.0); MEAN CORPUSCULAR HGB CONC 35.5 % (32.0-36.0); MONO % 10.4 % (0.0-8.0); PLATELET COUNT 258 TH/MM3 (150-450); RED BLOOD COUNT 2.77 MIL/MM3 (4.50-5.90); RED CELL DISTRIBUTION WIDTH 14.2 % (11.6-17.2); WHITE BLOOD COUNT 13.8 TH/MM3 (4.0-11.0)
[2016-10-05 07:29] LABS: ALT (GPT) 31 U/L (12-78); ANION GAP 12 MEQ/L (5-15); AST (GOT) 36 U/L (15-37); BICARBONATE 28.3 MEQ/L (21.0-32.0); BLOOD UREA NITROGEN 7 MG/DL (7-18); CHLORIDE 99 MEQ/L (98-107); GLOMERULAR FILTRATION RATE 252 ML/MIN (>89); MAGNESIUM 2.1 MG/DL (1.5-2.5); POTASSIUM 3.2 MEQ/L (3.5-5.1); SODIUM (NA) 139 MEQ/L (136-145)
[2016-10-05 07:31] LABS: ALKALINE PHOSPHATASE 67 U/L (45-117); TOTAL BILIRUBIN ADULT 0.6 MG/DL (0.2-1.0)
[2016-10-05 08:00] VITALS: BP 175/92; PULSE 60; RESP 17; TEMP 97.2; O2SAT 98
[2016-10-05] MEDS ORDERED: BISACODYL 10 MG SUPP RECTAL ONE (08:00)
[2016-10-05] MEDS ORDERED: BISACODYL EC 5 MG TABEC PO ONE (08:00)
[2016-10-05] MEDS ORDERED: POTASSIUM CHLORIDE 10 MEQ CONTROLLED RELEASE TAB PO ONE (08:00)
[2016-10-05] MEDS: BACITRACIN TOP OINT 15 GM TUBE TOP SCH ×2 (09:00→20:27)
[2016-10-05] MEDS: SODIUM CHLORIDE 0.9% FLUSH 5 ML FLUSH IVF SCH ×2 (09:00→20:27)
[2016-10-05] MEDS: LISINOPRIL 20 MG TAB PO SCH (10:04)
[2016-10-05] MEDS: LACTULOSE SYRUP 20 GM/30 ML CUP PO SCH (10:04)
[2016-10-05] MEDS: DOCUSATE SODIUM 50 MG/SENNA 8.6 MG TAB PO SCH ×2 (10:05→20:27)
[2016-10-05] MEDS: POTASSIUM CHLOR 20 MEQ PREMIX 100 ML IV SCH ×2 (10:10→12:27)
[2016-10-05] MEDS: SODIUM CHLOR 0.9% 1000 ML INJ 1,000 ML IV SCH (10:12)
--- NOTE | 2016-10-05 10:36 | MP ---
cc: MD ENRIQUE,VERA DATE OF SURGERY: 10/02/2016 PREOPERATIVE DIAGNOSIS: Left hemothorax, status post fall, rib fractures. POSTOPERATIVE DIAGNOSIS: Left hemothorax, status post fall, rib fractures. OPERATION: Left chest tube placement. SURGEON Vera Govea MD. ANESTHESIA General. ESTIMATED BLOOD LOSS: Estimated blood loss minimal. PROCEDURE: The patient prepped and draped usual fashion. The area filtrated once with a Xylocaine. An incision made and midaxillary line, at the sixth intercostal space, deepened down with hemostat into the chest and then the chest tube is placed. A 28-[place] chest tube is sutured in place with 0-silk and connected to Pleur-Evac about 600 mL of blood comes out the patient was procedure well. Chest x-ray Obtained. Vera PLUNKETT/candi /3:17 PM /10:33 AM
--- NOTE | 2016-10-05 10:52 | MP ---
cc: NADIA NUNEZ DATE OF SURGERY 10/02/2016 PREOPERATIVE DIAGNOSIS Grade 4 splenic rupture, peritonitis, hemoperitoneum. POSTOPERATIVE DIAGNOSIS Grade 4 splenic rupture, peritonitis, hemoperitoneum. PROCEDURE Splenectomy, evacuation of hemoperitoneum and drainage. SURGEON Dr. Nunez ANESTHESIA General. ESTIMATED BLOOD LOSS 100 cc INDICATIONS FOR PROCEDURE This 41-year-old male was admitted several days ago after sustaining a fall with a splenic rupture. The patient underwent embolization of the spleen. Now three days later the patient is more tender, has diffuse peritonitis and peritoneal signs and dropping hemoglobin. The patient is taken to the operative room. The patient is prepped and draped in usual fashion, midabdominal incision made and the abdomen entered. Upon the abdomen entrance there is a large amount of blood that escapes the abdomen. This when it was suctioned off there is about 0.5 liter of blood in the abdomen which is liquid and another probably 400-500 cc which is semi-clotted blood. This was evacuated. The abdomen is irrigated with saline in all four quadrants. Bookwalter retractor is now placed and left upper quadrant exposed. The spleen capsule has ruptured and spleen is essentially shattered, looks like dynamite stick went off in there. There are several pieces of spleen hanging onto the splenic hilum but for the most part it is destroyed. The tail of the pancreas appears to be swollen and inflamed. The spleen remnants are immobilized by cutting the splenophrenic and splenorenal ligament and then immobilizing the spleen into the wound. Clamps are placed across the remnants of the hilum and then spleen is removed. This was tied off with 0 Vicryl [id number] stick ties and then several short gastric vessels are tied off. These are Vicryl stick tie interrupted [id number] stitches. Once this is completed, the abdomen is irrigated once more with saline and the left upper quadrant is packed. The diaphragm is observed, appears to be intact. Liver is mobilized and there is a laceration of the left lobe of the liver but that is not bleeding. The abdomen is once more explored in quadrants. Small bowel and large bowel are run. There is some mesenteric hematoma in the lower portion of the abdomen but no other injuries. Abdomen is irrigated with copious amounts of saline and then laps removed from the left upper quadrant. No more bleeding is encountered. Some Zeke powder is laid down and then a 10 flat Daniel-Van inserted in the left upper quadrant and then abdomen closed with #1 PDS looped. The patient tolerated the procedure well. Nadia PLUNKETT/MICHELLE /3:13 PM /10:43 AM
[2016-10-05 12:00] VITALS: BP 171/97; PULSE 74; RESP 18; TEMP 96.8; O2SAT 97
--- NOTE | 2016-10-05 12:57 | HHI.PR ---
Subjective Subjective Notes PTD: 5 Patient lying in bed. He states he has been tolerating a full liquid diet. He is still complaining of pain. He only complains of nausea when he attempts to stand up. Objective Vitals/I&O Vital Signs Date Time Temp Pulse Resp B/P Pulse Ox O2 Delivery O2 Flow Rate FiO2 10/05/16 12:00 96.8 74 18 171/97 97 10/04/16 08:45 21 10/03/16 21:03 Nasal Cannula 3.00 Labs Laboratory Tests Test 10/05/16 10/05/16 04:10 06:40 Sodium Level 139 Potassium Level 3.2 Chloride Level 99 Carbon Dioxide Level 28.3 Anion Gap 12 Blood Urea Nitrogen 7 Creatinine 0.38 Estimat Glomerular Filtration 252 Rate Random Glucose 77 Calcium Level 8.4 Phosphorus Level 2.4 Magnesium Level 2.1 Total Bilirubin 0.6 Aspartate Amino Transf 36 (AST/SGOT) Alanine Aminotransferase 31 (ALT/SGPT) Alkaline Phosphatase 67 Total Protein 5.7 Albumin 2.0 White Blood Count 13.8 Red Blood Count 2.77 Hemoglobin 9.0 Hematocrit 25.4 Mean Corpuscular Volume 91.4 Mean Corpuscular Hemoglobin 32.5 Mean Corpuscular Hemoglobin 35.5 Concent Red Cell Distribution Width 14.2 Platelet Count 258 Mean Platelet Volume 8.0 Neutrophils (%) (Auto) 76.0 Lymphocytes (%) (Auto) 11.9 Monocytes (%) (Auto) 10.4 Eosinophils (%) (Auto) 1.2 Basophils (%) (Auto) 0.5 Neutrophils # (Auto) 10.5 Lymphocytes # (Auto) 1.6 Monocytes # (Auto) 1.4 Eosinophils # (Auto) 0.2 Basophils # (Auto) 0.1 CBC Comment DIFF FINAL Differential Comment Radiology Last Impressions Chest X-Ray 10/04/16 0600 Signed Impressions: Service Date/Time: Tuesday, October 04, 2016 05:35 - CONCLUSION: 1. Tiny left apical pneumothorax without tension Adria Morillo MD Abdomen CT 10/02/16 0000 Signed Impressions: Service Date/Time: Sunday, October 02, 2016 11:14 - CONCLUSION: 1. Significant decreased perfusion of the spleen. There is some high density material in the splenic region suggesting some minimal hemorrhage. 2. Moderate amount of hemoperitoneum. 3. There is some decreased perfusion of the pancreatic tail. 4. Left lower rib fractures. Vasile Danielson MD Maxillofacial CT 09/30/161930 Signed Impressions: Service Date/Time: September 20:12 - CONCLUSION: 1. No acute fracture identified. Mucosal thickening present in the paranasal sinuses. Vitaly Palacios MD Head CT 09/30/161930 Signed Impressions: Service Date/Time: September 20:07 - CONCLUSION: 1. No acute intracranial abnormalities. Mucosal thickening in the paranasal sinuses. Vitaly Palacios MD Chest CT 09/30/161930 Signed Impressions: Service Date/Time: September 20:18 - CONCLUSION: 1. Multiple left-sided rib fractures with mild left lung contusion and small left hemothorax. 2. A subcapsular hematoma of the spleen with some active contrast extravasation. 3. Negative for traumatic aortic injury. Vitaly Palacios MD Cervical Spine CT 09/30/161930 Signed Impressions: Service Date/Time: September 20:11 - CONCLUSION: Normal examination for a patient of this age. Vitaly Palacios MD Abdomen/Pelvis CT 09/30/161930 Signed Impressions: Service Date/Time: September 20:18 - CONCLUSION: 1. Splenic laceration with subcapsular hematoma measuring up to 3.2 cm in thickness and 8.8 cm in length. There is also a small amount of active contrast extravasation within the subcapsular splenic hematoma. No significant free intraperitoneal fluid. There is an extraperitoneal hematoma tracking down the left flank measuring about 11 mm in thickness. There is some edematous changes in the left lateral abdominal wall and some subcutaneous hemorrhage. 2. Lower left rib fractures with small left lower lobe lung contusion. 3. No other solid visceral injuries identified. 4. Mildly displaced fracture of left iliac wing. Vitaly Palacios MD Splenic Arteriogram 09/30/16 0000 Signed Impressions: Service Date/Time: September 23:05 - CONCLUSION: 1. Uncomplicated splenic embolization Adria Morillo MD Narrative Exam GENERAL: This is a 41-year-old male sitting up in bed in no distress. SKIN: Warm and dry. HEAD: Atraumatic. Normocephalic. EYES: PERRLA ENT: NG tube in place to low intermittent wall suction. No nasal bleeding or discharge. Mucous membranes pink and moist. NECK: Trachea midline. No JVD. CARDIOVASCULAR: Regular rate and rhythm. RESPIRATORY: No accessory muscle use. Lungs are clear to auscultation. Breath sounds equal bilaterally. No distress or dyspnea. LEFT chest tube and placed to Pleur-evac drainage system waterseal. GASTROINTESTINAL: BS + x 4 quads. Abdomen soft, non-tender, nondistended. Midline [place] noted. CORTEZ to bulb suction. MUSCULOSKELETAL: Extremities without cyanosis, or edema. + peripheral pulses x 4 extremities. Warm with good capillary refill and sensation. MAEW. NEUROLOGICAL: Awake and alert. Normal speech and pattern. A/P Problem List: (1) Multiple rib fractures (2) Splenic laceration (3) Pelvic fracture Assessment and Plan [place]: This is a 41-year-old male who sustained a fall from approximately 20 feet. + EtOH. No LOC. PMHx: ETOH, tobacco and cannabis abuse. INJURIES: RIGHT temporal lac (tori) LEFT lung contusion LEFT hemothorax Multiple LEFT rib fractures LEFT iliac wing fracture (non-op) splenic lac Procedures: 10/01: Splenic embolization with IR 10/02: Splenectomy and LEFT CT placement for hemothorax Consults: CCM, orthopedics. Diet: Advanced to regular diet diet. Encourage good po intake with each meal. Pulmonary: Encourage good pulmonary toileting. IS at bedside and pt encouraged to use. Rationale for use explained to patient, and verbalized understanding. LEFT CT increased to water seal in the a.m., as there was a tiny PTX with this AM's chest Xray, however we placed to waterseal later in the afternoon as per Dr. Govea. Follow-up labs and chest x-ray in the morning. Abdominal CORTEZ to be removed. 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 [place] po. (Ativan) HTN management: Lisinopril 10 mg po QD. Activity: OOB with binder. PT and OT ordered. (WBAT LLE) GI prophylaxis: Protonix IV. Bowel regimen: Jo-Ann-colace and MOM. Lactulose QD. 0 BM. Intensified with bisacodyl PO/AL DVT prophylaxis: Mechanical VTE with SCDs. Chemical management TBD. DC Planning: Case management consulted for assistance with final discharge disposition. Post splenectomy vaccines scheduled for 10/06. Emotional support provided to patient and family at bedside and plan of care discussed. Discussed with RN at bedside. Patient is hemodynamically stable and being managed on the med/surg floor. Problem Qualifiers (1) Multiple rib fractures: Qualified Code: S22.42XA - Closed fracture of multiple ribs of left side, initial encounter (2) Splenic laceration: Qualified Code: S36.039A - Splenic laceration, initial encounter (3) Pelvic fracture: Rashmi Machuca Oct 05, 2016 12:57
[2016-10-05] MEDS: PANTOPRAZOLE SODIUM 40 MG VIAL IV SCH (14:45)
[2016-10-05] MEDS: HYDROmorphone HCL PCA 6 MG/30 ML IV SCH (14:46)
[2016-10-05] MEDS: ENALAPRILAT 1.25 MG/ML VIAL IV PRN (15:43)
[2016-10-05 16:00] VITALS: BP 165/90; PULSE 85; RESP 17; TEMP 96.1; O2SAT 96
[2016-10-05 20:00] VITALS: BP 174/94; PULSE 96; RESP 20; TEMP 98.8; O2SAT 94
[2016-10-05 20:30] VITALS: RESP 18
[2016-10-06 00:34] VITALS: BP 162/88; PULSE 94; RESP 18; TEMP 97.6; O2SAT 96
[2016-10-06 04:00] VITALS: BP 158/84; PULSE 90; RESP 20; TEMP 98; O2SAT 97
[2016-10-06] MEDS: CHLORHEXIDINE GLUCONATE 2 % 1 PACK (2 CLOTHS) TOP SCH ×2 (04:00→20:01)
[2016-10-06] MEDS: SODIUM CHLOR 0.9% 1000 ML INJ 1,000 ML IV SCH (04:51)
[2016-10-06] MEDS: PCA - TOTAL MG DILAUDID DELIVERED PER SHIFT OTHER SCH (04:55)
[2016-10-06 05:51] LABS: AUTOMATED NEUTROPHIL # 9.4 TH/MM3 (1.8-7.7); BASOPHIL # 0.1 TH/MM3 (0-0.2); BASOPHIL % 0.4 % (0.0-2.0); EOSINOPHIL # 0.2 TH/MM3 (0-0.4); EOSINOPHIL % 1.5 % (0.0-4.0); HEMATOCRIT 28.2 % (39.0-51.0); HEMO FLAGS DIFF FINAL; LYMPHOCYTE # 1.4 TH/MM3 (1.0-4.8); MEAN CORPUSCULAR HEMOGLOBIN 31.2 PG (27.0-34.0); MEAN CORPUSCULAR HGB CONC 34.7 % (32.0-36.0); MONO % 13.1 % (0.0-8.0); PLATELET COUNT 358 TH/MM3 (150-450); RED BLOOD COUNT 3.13 MIL/MM3 (4.50-5.90); RED CELL DISTRIBUTION WIDTH 14.2 % (11.6-17.2); WHITE BLOOD COUNT 12.7 TH/MM3 (4.0-11.0)
[2016-10-06 06:10] LABS: ALT (GPT) 27 U/L (12-78); ANION GAP 9 MEQ/L (5-15); AST (GOT) 25 U/L (15-37); BICARBONATE 29.3 MEQ/L (21.0-32.0); BLOOD UREA NITROGEN 5 MG/DL (7-18); CHLORIDE 100 MEQ/L (98-107); GLOMERULAR FILTRATION RATE 212 ML/MIN (>89); MAGNESIUM 1.9 MG/DL (1.5-2.5); SODIUM (NA) 138 MEQ/L (136-145)
[2016-10-06 06:13] LABS: ALKALINE PHOSPHATASE 65 U/L (45-117); TOTAL BILIRUBIN ADULT 0.5 MG/DL (0.2-1.0)
--- NOTE | 2016-10-06 07:12 | RADRPT ---
EXAM DATE/TIME: 10/06/2016 06:41 [facility] COMPARISON: CHEST SINGLE AP, October 05, 2016, 5:21. INDICATIONS : Hemothorax. MEDICAL HISTORY : Hemothorax. SURGICAL HISTORY : Chest tube, left. ENCOUNTER: Subsequent ACUITY: 1 week PAIN SCORE: 4/10 LOCATION: Left chest FINDINGS: A single view of the chest demonstrates a tiny left apical pneumothorax with 5 mm of separation. A le ft-sided chest tube remains in place. There is a focal infiltrate in the left lung base. The right obed ng is grossly clear. The heart size is stable. No definite pleural effusions. The bony structures are stable.. CONCLUSION: 1. Small 5 mm left apical pneumothorax. 2. Infiltrate left lung base. Juan Hennessy MD on October 06, 2016 at 7:10 Board Certified Radiologist. This report was verified electronically.
[2016-10-06 08:00] VITALS: BP 160/93; PULSE 84; RESP 22; TEMP 99.2; O2SAT 95
[2016-10-06] MEDS ORDERED: POTASSIUM CHLORIDE 20 MEQ CONTROLLED RELEASE TAB PO ONE (08:30)
[2016-10-06] MEDS: BACITRACIN TOP OINT 15 GM TUBE TOP SCH ×2 (09:00→21:00)
[2016-10-06] MEDS: DOCUSATE SODIUM 50 MG/SENNA 8.6 MG TAB PO SCH ×2 (09:00→22:50)
[2016-10-06] MEDS: SODIUM CHLORIDE 0.9% FLUSH 5 ML FLUSH IVF SCH ×2 (09:00→22:50)
[2016-10-06] MEDS: LACTULOSE SYRUP 20 GM/30 ML CUP PO SCH (09:00)
[2016-10-06] MEDS: LISINOPRIL 20 MG TAB PO SCH (09:16)
[2016-10-06] MEDS: amLODIPine BESYLATE 5 MG TAB PO SCH (09:21)
[2016-10-06] MEDS ORDERED: PNEUMOCOCCAL POLYVALENT INJ 25 MCG/0.5 ML SYR IM ONE (10:00)
[2016-10-06] MEDS ORDERED: HAEMOPH B POLYSACCH CONJ VACCINE 0.5 ML VIAL IM ONE (10:00)
[2016-10-06] MEDS ORDERED: MENINGOCOCCAL CONJUGATE VACCINE 0.5 ML VIAL IM ONE (10:00)
[2016-10-06 12:00] VITALS: BP 137/88; PULSE 93; RESP 24; TEMP 97.7; O2SAT 94
[2016-10-06] MEDS: PANTOPRAZOLE SODIUM 40 MG VIAL IV SCH (14:40)
--- NOTE | 2016-10-06 15:53 | HHI.PR ---
Subjective Subjective Notes Increased drainage overnight from chest tube. Pain controlled. Objective Vitals/I&O Vital Signs Date Time Temp Pulse Resp B/P Pulse Ox O2 Delivery O2 Flow Rate FiO2 10/06/16 12:00 97.7 93 24 137/88 94 10/04/16 08:45 21 10/03/16 21:03 Nasal Cannula 3.00 Labs Laboratory Tests Test 10/06/16 05:34 White Blood Count 12.7 Red Blood Count 3.13 Hemoglobin 9.8 Hematocrit 28.2 Mean Corpuscular Volume 90.0 Mean Corpuscular Hemoglobin 31.2 Mean Corpuscular Hemoglobin 34.7 Concent Red Cell Distribution Width 14.2 Platelet Count 358 Mean Platelet Volume 7.7 Neutrophils (%) (Auto) 74.0 Lymphocytes (%) (Auto) 11.0 Monocytes (%) (Auto) 13.1 Eosinophils (%) (Auto) 1.5 Basophils (%) (Auto) 0.4 Neutrophils # (Auto) 9.4 Lymphocytes # (Auto) 1.4 Monocytes # (Auto) 1.7 Eosinophils # (Auto) 0.2 Basophils # (Auto) 0.1 CBC Comment DIFF FINAL Differential Comment Sodium Level 138 Potassium Level 3.0 Chloride Level 100 Carbon Dioxide Level 29.3 Anion Gap 9 Blood Urea Nitrogen 5 Creatinine 0.44 Estimat Glomerular Filtration 212 Rate Random Glucose 129 Calcium Level 8.3 Phosphorus Level 3.3 Magnesium Level 1.9 Total Bilirubin 0.5 Aspartate Amino Transf 25 (AST/SGOT) Alanine Aminotransferase 27 (ALT/SGPT) Alkaline Phosphatase 65 Total Protein 6.0 Albumin 2.1 Radiology Last Impressions Chest X-Ray 10/04/16 0600 Signed Impressions: Service Date/Time: Tuesday, October 04, 2016 05:35 - CONCLUSION: 1. Tiny left apical pneumothorax without tension Adria Morillo MD Abdomen CT 10/02/16 0000 Signed Impressions: Service Date/Time: Sunday, October 02, 2016 11:14 - CONCLUSION: 1. Significant decreased perfusion of the spleen. There is some high density material in the splenic region suggesting some minimal hemorrhage. 2. Moderate amount of hemoperitoneum. 3. There is some decreased perfusion of the pancreatic tail. 4. Left lower rib fractures. Vasile Danielson MD Maxillofacial CT 09/30/16 1931 Signed Impressions: Service Date/Time: September 20:12 - CONCLUSION: 1. No acute fracture identified. Mucosal thickening present in the paranasal sinuses. Vitaly Palacios MD Head CT 09/30/161930 Signed Impressions: Service Date/Time: September 20:07 - CONCLUSION: 1. No acute intracranial abnormalities. Mucosal thickening in the paranasal sinuses. Vitaly Palacios MD Chest CT 09/30/161930 Signed Impressions: Service Date/Time: September 20:18 - CONCLUSION: 1. Multiple left-sided rib fractures with mild left lung contusion and small left hemothorax. 2. A subcapsular hematoma of the spleen with some active contrast extravasation. 3. Negative for traumatic aortic injury. Vitaly Palacios MD Cervical Spine CT 09/30/161930 Signed Impressions: Service Date/Time: September 20:11 - CONCLUSION: Normal examination for a patient of this age. Vitaly Palacios MD Abdomen/Pelvis CT 09/30/161930 Signed Impressions: Service Date/Time: September 20:18 - CONCLUSION: 1. Splenic laceration with subcapsular hematoma measuring up to 3.2 cm in thickness and 8.8 cm in length. There is also a small amount of active contrast extravasation within the subcapsular splenic hematoma. No significant free intraperitoneal fluid. There is an extraperitoneal hematoma tracking down the left flank measuring about 11 mm in thickness. There is some edematous changes in the left lateral abdominal wall and some subcutaneous hemorrhage. 2. Lower left rib fractures with small left lower lobe lung contusion. 3. No other solid visceral injuries identified. 4. Mildly displaced fracture of left iliac wing. Vitaly Palacios MD Splenic Arteriogram 09/30/16 0000 Signed Impressions: Service Date/Time: September 23:05 - CONCLUSION: 1. Uncomplicated splenic embolization Adria Morillo MD Narrative Exam GENERAL: This is a 41-year-old well-nourished, well-developed male lying in bed. SKIN: Warm and dry. ENT: No nasal bleeding or discharge. Mucous membranes pink and moist. NECK: Trachea midline. No JVD. CARDIOVASCULAR: Regular rate and rhythm. RESPIRATORY: No accessory muscle use. Lungs are clear to auscultation. Breath sounds equal bilaterally. LEFT lateral chest tube secured to pleura vac. No air leak GASTROINTESTINAL: Abdomen soft, non-tender, nondistended. Midline [place] well approximated, no erythema noted. CORTEZ to bulb suction. MUSCULOSKELETAL: Extremities without cyanosis, or edema. MAEW. NEUROLOGICAL: Awake and alert. Normal speech and pattern. A/P Problem List: (1) Multiple rib fractures (2) Splenic laceration (3) Pelvic fracture Assessment and Plan INJURIES: RIGHT temporal lac LEFT lung contusion LEFT hemothorax Multiple LEFT rib fractures LEFT iliac wing fracture (non-op) splenic lac PMHx: ETOH, tobacco and cannabis abuse. 10/01: Splenic embolization with IR 10/02: Splenectomy and LEFT CT placement for hemothorax Diet: Regular, tolerating. Pulmonary: IS, LEFT CT to water seal Pain: [place]. 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 Activity: OOB with binder. PT and OT ordered. (WBAT LLE). Tolerating ambulation with standby assist. GI: IV Protonix Bowel: Jo-Ann-colace, Lactulose QD. LBM 10/06 DVT: SCDs HTN: On lisinopril. Added Norvasc. We'll monitor CXR shows small left 5 mm PTX. CXR in AM. Change CT dressing daily and PRN. Plan to discontinue chest tube when drainage less. Plan of care discussed with patient at bedside. Problem Qualifiers (1) Multiple rib fractures: Qualified Code: S22.42XA - Closed fracture of multiple ribs of left side, initial encounter (2) Splenic laceration: Qualified Code: S36.039A - Splenic laceration, initial encounter (3) Pelvic fracture: Megan Lopes Oct 06, 2016 15:53
[2016-10-06 16:00] VITALS: BP 115/67; PULSE 104; RESP 20; TEMP 98.9; O2SAT 96
[2016-10-06 20:00] VITALS: BP 141/90; PULSE 96; RESP 18; TEMP 97.6; O2SAT 97
[2016-10-06] MEDS: FAMOTIDINE 20 MG TAB PO SCH (22:50)
[2016-10-06] MEDS: METHOCARBAMOL 500 MG TAB PO SCH (22:50)
[2016-10-06] MEDS: ACETAMINOPHEN/HYDROcodone 325 MG/5 MG TAB PO PRN (22:59)
[2016-10-07] VITALS: BP 132/78; PULSE 82; RESP 16; TEMP 96.8; O2SAT 96
[2016-10-07 04:00] VITALS: BP 138/83; PULSE 84; RESP 18; TEMP 96.7; O2SAT 97
[2016-10-07] MEDS: METHOCARBAMOL 500 MG TAB PO SCH ×3 (05:03→21:41)
[2016-10-07] MEDS: ACETAMINOPHEN/HYDROcodone 325 MG/5 MG TAB PO PRN ×5 (05:03→21:41)
--- NOTE | 2016-10-07 06:05 | RADRPT ---
EXAM DATE/TIME: 10/07/2016 05:22 [facility] COMPARISON: CHEST SINGLE AP, October 06, 2016, 6:41. INDICATIONS : Rule out pnuemothorax. MEDICAL HISTORY : None. SURGICAL HISTORY : None. ENCOUNTER: Subsequent ACUITY: 4 - 6 days PAIN SCORE: 0/10 LOCATION: Bilateral chest FINDINGS: The cardiac silhouette is enlarged in transverse diameter. There is left lower lobe atelectasis versu s pneumonia. A small left apical pneumothorax is present. There are no signs of tension. CONCLUSION: 1. Small left apical pneumothorax without tension. There has been no significant change when compared to the prior exam. Adria Morillo MD on October 07, 2016 at 6:03 Board Certified Radiologist. This report was verified electronically.
[2016-10-07 06:21] LABS: BICARBONATE 30.1 MEQ/L (21.0-32.0); MAGNESIUM 2.1 MG/DL (1.5-2.5); POTASSIUM 3.2 MEQ/L (3.5-5.1)
[2016-10-07 08:00] VITALS: BP 135/81; PULSE 79; RESP 18; TEMP 97.3; O2SAT 96
[2016-10-07] MEDS: LISINOPRIL 20 MG TAB PO SCH (08:26)
[2016-10-07] MEDS: amLODIPine BESYLATE 5 MG TAB PO SCH (08:26)
[2016-10-07] MEDS: FAMOTIDINE 20 MG TAB PO SCH ×2 (08:27→21:41)
[2016-10-07] MEDS: BACITRACIN TOP OINT 15 GM TUBE TOP SCH ×2 (08:27→21:45)
[2016-10-07] MEDS: SODIUM CHLORIDE 0.9% FLUSH 5 ML FLUSH IVF SCH ×2 (08:27→21:00)
[2016-10-07] MEDS: DOCUSATE SODIUM 50 MG/SENNA 8.6 MG TAB PO SCH ×2 (08:27→21:00)
[2016-10-07] MEDS: LACTULOSE SYRUP 20 GM/30 ML CUP PO SCH (08:27)
[2016-10-07 12:00] VITALS: BP 124/66; PULSE 88; RESP 17; TEMP 97.5; O2SAT 97
[2016-10-07 16:00] VITALS: BP 114/71; PULSE 88; RESP 17; TEMP 97.4; O2SAT 97
[2016-10-07] MEDS ORDERED: POTASSIUM CHLORIDE 8 MEQ CONTROLLED RELEASE TAB PO ONE (16:30)
--- NOTE | 2016-10-07 16:36 | HHI.PR ---
Subjective Subjective Notes Left chest tube still draining significantly. Patient feels good today. No complaints. Objective Vitals/I&O Vital Signs Date Time Temp Pulse Resp B/P Pulse Ox O2 Delivery O2 Flow Rate FiO2 10/07/16 12:00 97.5 88 17 124/66 97 10/04/16 08:45 21 10/03/16 21:03 Nasal Cannula 3.00 Labs Laboratory Tests Test 10/07/16 04:18 Sodium Level 136 Potassium Level 3.2 Chloride Level 98 Carbon Dioxide Level 30.1 Anion Gap 8 Blood Urea Nitrogen 5 Creatinine 0.53 Estimat Glomerular Filtration 171 Rate Random Glucose 114 Calcium Level 8.6 Magnesium Level 2.1 Radiology Last Impressions Chest X-Ray 10/04/16 0600 Signed Impressions: Service Date/Time: Tuesday, October 04, 2016 05:35 - CONCLUSION: 1. Tiny left apical pneumothorax without tension Adria Morillo MD Abdomen CT 10/02/16 0000 Signed Impressions: Service Date/Time: Sunday, October 02, 2016 11:14 - CONCLUSION: 1. Significant decreased perfusion of the spleen. There is some high density material in the splenic region suggesting some minimal hemorrhage. 2. Moderate amount of hemoperitoneum. 3. There is some decreased perfusion of the pancreatic tail. 4. Left lower rib fractures. Vasile Danielson MD Maxillofacial CT 09/30/161930 Signed Impressions: Service Date/Time: September 20:12 - CONCLUSION: 1. No acute fracture identified. Mucosal thickening present in the paranasal sinuses. Vitaly Palacios MD Head CT 09/30/161930 Signed Impressions: Service Date/Time: September 20:07 - CONCLUSION: 1. No acute intracranial abnormalities. Mucosal thickening in the paranasal sinuses. Vitaly Palacios MD Chest CT 09/30/161930 Signed Impressions: Service Date/Time: September 20:18 - CONCLUSION: 1. Multiple left-sided rib fractures with mild left lung contusion and small left hemothorax. 2. A subcapsular hematoma of the spleen with some active contrast extravasation. 3. Negative for traumatic aortic injury. Vitaly Palacios MD Cervical Spine CT 09/30/161930 Signed Impressions: Service Date/Time: September 20:11 - CONCLUSION: Normal examination for a patient of this age. Vitaly Palacios MD Abdomen/Pelvis CT 09/30/16 1931 Signed Impressions: Service Date/Time: September 20:18 - CONCLUSION: 1. Splenic laceration with subcapsular hematoma measuring up to 3.2 cm in thickness and 8.8 cm in length. There is also a small amount of active contrast extravasation within the subcapsular splenic hematoma. No significant free intraperitoneal fluid. There is an extraperitoneal hematoma tracking down the left flank measuring about 11 mm in thickness. There is some edematous changes in the left lateral abdominal wall and some subcutaneous hemorrhage. 2. Lower left rib fractures with small left lower lobe lung contusion. 3. No other solid visceral injuries identified. 4. Mildly displaced fracture of left iliac wing. Vitaly Palacios MD Splenic Arteriogram 09/30/16 0000 Signed Impressions: Service Date/Time: September 23:05 - CONCLUSION: 1. Uncomplicated splenic embolization Adria Morillo MD Narrative Exam GENERAL: This is a 41-year-old well-nourished, well-developed male sitting OOB in chair. SKIN: Warm and dry. ENT: No nasal bleeding or discharge. Mucous membranes pink and moist. NECK: Trachea midline. No JVD. CARDIOVASCULAR: Regular rate and rhythm. RESPIRATORY: No accessory muscle use. Lungs are clear to auscultation. Breath sounds equal bilaterally. LEFT lateral chest tube secured to pleura vac, serous drainage noted. No air leak. GASTROINTESTINAL: Abdomen soft, non-tender, nondistended. Midline tori well approximated, no erythema noted. MUSCULOSKELETAL: Extremities without cyanosis, or edema. MAEW. NEUROLOGICAL: Awake and alert. Normal speech and pattern. A/P Problem List: (1) Multiple rib fractures (2) Splenic laceration (3) Pelvic fracture Assessment and Plan INJURIES: RIGHT temporal lac LEFT lung contusion LEFT hemothorax Multiple LEFT rib fractures LEFT iliac wing fracture (non-op) splenic lac PMHx: ETOH, tobacco and cannabis abuse. 10/01: Splenic embolization with IR 10/02: Splenectomy and LEFT CT placement for hemothorax Diet: Regular, tolerating. Pulmonary: IS, LEFT CT to water seal Pain: [place]. IV Morphine. Pain controlled. Activity: OOB with binder. PT and OT ordered. (WBAT LLE). Tolerating ambulation with standby assist. GI: IV Protonix Bowel: Jo-Ann-colace, Lactulose QD. LBM 10/06 DVT: SCDs HTN: On lisinopril and Norvasc. Blood pressure improved. CXR still shows small left PTX. CXR in AM. Potassium level 3.2 today despite replacement with 60 mEq yesterday. KCl 60 mEq 2 today. BMP in am Change CT dressing daily and PRN. Plan to discontinue chest tube when drainage decreases. Possibly tomorrow. Plan of care discussed with patient at bedside. Problem Qualifiers (1) Multiple rib fractures: Qualified Code: S22.42XA - Closed fracture of multiple ribs of left side, initial encounter (2) Splenic laceration: Qualified Code: S36.039A - Splenic laceration, initial encounter (3) Pelvic fracture: Megan Lopes Oct 07, 2016 16:36
[2016-10-07] MEDS ORDERED: POTASSIUM CHLORIDE 10 MEQ CONTROLLED RELEASE TAB PO ONE ×2 (17:00→22:00)
[2016-10-07 20:00] VITALS: BP 115/69; PULSE 89; RESP 16; TEMP 97.9; O2SAT 98
[2016-10-08] VITALS: BP 116/84; PULSE 80; RESP 16; TEMP 98.4; O2SAT 97
[2016-10-08] MEDS: MORPHINE SULFATE 4 MG/ML INJ IV PUSH PRN ×2 (02:04→11:32)
[2016-10-08] MEDS: CHLORHEXIDINE GLUCONATE 2 % 1 PACK (2 CLOTHS) TOP SCH (04:00)
[2016-10-08 05:15] LABS: AUTOMATED NEUTROPHIL # 11.1 TH/MM3 (1.8-7.7); BASOPHIL # 0.1 TH/MM3 (0-0.2); BASOPHIL % 0.6 % (0.0-2.0); EOSINOPHIL # 0.3 TH/MM3 (0-0.4); EOSINOPHIL % 2.3 % (0.0-4.0); HEMATOCRIT 30.8 % (39.0-51.0); HEMO FLAGS DIFF FINAL; LYMPH % 11.2 % (9.0-44.0); LYMPHOCYTE # 1.7 TH/MM3 (1.0-4.8); MEAN CELL VOLUME 91.6 FL (80.0-100.0); MEAN CORPUSCULAR HEMOGLOBIN 31.1 PG (27.0-34.0); MONO % 12.4 % (0.0-8.0); NEUT % 73.5 % (16.0-70.0); PLATELET COUNT 551 TH/MM3 (150-450); RED BLOOD COUNT 3.36 MIL/MM3 (4.50-5.90); RED CELL DISTRIBUTION WIDTH 14.1 % (11.6-17.2); WHITE BLOOD COUNT 15.1 TH/MM3 (4.0-11.0)
[2016-10-08 05:22] LABS: BICARBONATE 26.3 MEQ/L (21.0-32.0); MAGNESIUM 2.1 MG/DL (1.5-2.5); POTASSIUM 4.4 MEQ/L (3.5-5.1)
[2016-10-08] MEDS: METHOCARBAMOL 500 MG TAB PO SCH ×2 (05:49→14:49)
--- NOTE | 2016-10-08 07:20 | RADRPT ---
EXAM DATE/TIME: 10/08/2016 06:09 [facility] COMPARISON: CHEST SINGLE AP, October 07, 2016, 5:22. INDICATIONS : Short of breath, evaluate pneumothorax MEDICAL HISTORY : splenic laceration, hemothorax, pneumothorax on left SURGICAL HISTORY : splenic laceration, chest tube ENCOUNTER: Subsequent ACUITY: 1 week PAIN SCORE: 8/10 LOCATION: Bilateral chest FINDINGS: Left chest tube remains in place toward the apex with a persistent thin left apical pneumothorax and dense opacity in the left lung base consistent with parenchymal infiltrate or atelectasis. Right lung is clear. CONCLUSION: Stable chest Beto Bai MD on October 08, 2016 at 7:18 Board Certified Radiologist. This report was verified electronically.
[2016-10-08 08:00] VITALS: BP 118/82; PULSE 82; RESP 18; TEMP 95.9; O2SAT 99
[2016-10-08] MEDS: SODIUM CHLORIDE 0.9% FLUSH 5 ML FLUSH IVF SCH (08:37)
[2016-10-08] MEDS: ACETAMINOPHEN/HYDROcodone 325 MG/5 MG TAB PO PRN ×2 (08:37→14:49)
[2016-10-08] MEDS: LACTULOSE SYRUP 20 GM/30 ML CUP PO SCH (09:00)
[2016-10-08] MEDS: BACITRACIN TOP OINT 15 GM TUBE TOP SCH (09:00)
[2016-10-08] MEDS: DOCUSATE SODIUM 50 MG/SENNA 8.6 MG TAB PO SCH (09:00)
[2016-10-08] MEDS: FAMOTIDINE 20 MG TAB PO SCH (09:00)
[2016-10-08] MEDS ORDERED: PERC5TAB12 PO (10:57)
[2016-10-08] MEDS ORDERED: AMLO5 PO (10:59)
[2016-10-08] MEDS ORDERED: LISI-515 PO (10:59)
[2016-10-08] MEDS ORDERED: SENN1TAB PO (11:38)
[2016-10-08] MEDS: amLODIPine BESYLATE 5 MG TAB PO SCH (11:42)
[2016-10-08] MEDS: LISINOPRIL 20 MG TAB PO SCH (11:42)
[2016-10-08 12:00] VITALS: BP 137/81; PULSE 97; RESP 19; TEMP 95.3; O2SAT 98
--- NOTE | 2016-10-08 15:06 | RADRPT ---
EXAM DATE/TIME: 10/08/2016 14:37 [facility] COMPARISON: CHEST SINGLE AP, October 08, 2016, 6:09. INDICATIONS : Evaluate heart and lungs post left chest tube removal. MEDICAL HISTORY : Hemothorax, Splenic laceration post trauma, Patient fell off roof. SURGICAL HISTORY : Chest tube. ENCOUNTER: Subsequent ACUITY: 1 week PAIN SCORE: 2/10 LOCATION: chest FINDINGS: A single view of the chest demonstrates interval removal of a left thoracostomy tube. Again, there is a small, 1.3 cm left apical pneumothorax which may be slightly more prominent when compared to the p rior. Multiple left-sided rib fractures are identified and are stable. Persistent left basilar consol idation/effusion. Surgical clips in the left upper abdominal quadrant are characteristic of the repor meg history of prior splenectomy. CONCLUSION: 1. Interval removal of left-sided thoracostomy tube with a 1.3 cm left apical pneumothorax. 2. Multiple left-sided rib fractures, unchanged. 3. Persistent left basilar consolidation/effusion. Right lung remains clear. Ciro Monk MD on October 08, 2016 at 14:56 Board Certified Radiologist. This report was verified electronically.
[2016-10-08 16:00] VITALS: BP 116/78; PULSE 91; RESP 17; TEMP 97.5; O2SAT 96
--- NOTE | 2016-10-08 16:18 | HHI.DS ---
Discharge Summary Admission Date Sep 30, 2016 at 21:47 Discharge Date: Oct 08, 2016 Admitting Diagnosis Splenic laceration, hemothorax, multiple rib fractures (1) Multiple rib fractures Diagnosis: Principal (2) Splenic laceration Diagnosis: Principal (3) Pelvic fracture Diagnosis: Principal Brief History Fall. CBC/BMP: 10/08/16 0328 10/08/16 0328 Significant Findings Laboratory Tests Test 10/06/16 10/07/16 10/08/16 05:34 04:18 03:28 White Blood Count 12.7 TH/MM3 15.1 TH/MM3 (4.0-11.0) (4.0-11.0) Red Blood Count 3.13 MIL/MM3 3.36 MIL/MM3 (4.50-5.90) (4.50-5.90) Hemoglobin 9.8 GM/DL 10.5 GM/DL (13.0-17.0) (13.0-17.0) Hematocrit 28.2 % 30.8 % (39.0-51.0) (39.0-51.0) Neutrophils (%) (Auto) 74.0 % 73.5 % (16.0-70.0) (16.0-70.0) Monocytes (%) (Auto) 13.1 % 12.4 % (0.0-8.0) (0.0-8.0) Neutrophils # (Auto) 9.4 TH/MM3 11.1 TH/MM3 (1.8-7.7) (1.8-7.7) Monocytes # (Auto) 1.7 TH/MM3 1.9 TH/MM3 (0-0.9) (0-0.9) Potassium Level 3.0 MEQ/L 3.2 MEQ/L (3.5-5.1) (3.5-5.1) Blood Urea Nitrogen 5 MG/DL (7-18) 5 MG/DL (7-18) 6 MG/DL (7-18) Creatinine 0.44 MG/DL 0.53 MG/DL 0.48 MG/DL (0.60-1.30) (0.60-1.30) (0.60-1.30) Random Glucose 129 MG/DL 114 MG/DL 117 MG/DL (74-106) (74-106) (74-106) Calcium Level 8.3 MG/DL (8.5-10.1) Total Protein 6.0 GM/DL (6.4-8.2) Albumin 2.1 GM/DL (3.4-5.0) Platelet Count 551 TH/MM3 (150-450) Sodium Level 134 MEQ/L (136-145) Imaging Last Impressions Chest X-Ray 10/08/16 1430 Signed Impressions: Service Date/Time: Saturday, October 08, 2016 14:37 - CONCLUSION: 1. Interval removal of left-sided thoracostomy tube with a 1.3 cm left apical pneumothorax. 2. Multiple left-sided rib fractures, unchanged. 3. Persistent left basilar consolidation/effusion. Right lung remains clear. Ciro Monk MD Abdomen CT 10/02/16 0000 Signed Impressions: Service Date/Time: Sunday, October 02, 2016 11:14 - CONCLUSION: 1. Significant decreased perfusion of the spleen. There is some high density material in the splenic region suggesting some minimal hemorrhage. 2. Moderate amount of hemoperitoneum. 3. There is some decreased perfusion of the pancreatic tail. 4. Left lower rib fractures. Vasile Danielson MD Maxillofacial CT 09/30/161930 Signed Impressions: Service Date/Time: September 20:12 - CONCLUSION: 1. No acute fracture identified. Mucosal thickening present in the paranasal sinuses. Vitaly Palacios MD Head CT 09/30/161930 Signed Impressions: Service Date/Time: September 20:07 - CONCLUSION: 1. No acute intracranial abnormalities. Mucosal thickening in the paranasal sinuses. Vitaly Palacios MD Chest CT 09/30/161930 Signed Impressions: Service Date/Time: September 20:18 - CONCLUSION: 1. Multiple left-sided rib fractures with mild left lung contusion and small left hemothorax. 2. A subcapsular hematoma of the spleen with some active contrast extravasation. 3. Negative for traumatic aortic injury. Vitaly Palacios MD Cervical Spine CT 09/30/161930 Signed Impressions: Service Date/Time: September 20:11 - CONCLUSION: Normal examination for a patient of this age. Vitaly Palacios MD Abdomen/Pelvis CT 2/9/17 1931 Signed Impressions: Service Date/Time: September 20:18 - CONCLUSION: 1. Splenic laceration with subcapsular hematoma measuring up to 3.2 cm in thickness and 8.8 cm in length. There is also a small amount of active contrast extravasation within the subcapsular splenic hematoma. No significant free intraperitoneal fluid. There is an extraperitoneal hematoma tracking down the left flank measuring about 11 mm in thickness. There is some edematous changes in the left lateral abdominal wall and some subcutaneous hemorrhage. 2. Lower left rib fractures with small left lower lobe lung contusion. 3. No other solid visceral injuries identified. 4. Mildly displaced fracture of left iliac wing. Vitaly Palacios MD Splenic Arteriogram 09/30/16 0000 Signed Impressions: Service Date/Time: September 23:05 - CONCLUSION: 1. Uncomplicated splenic embolization Adria Morillo MD PE at Discharge GENERAL: This is a 41-year-old well-nourished, well-developed male sitting OOB in chair. SKIN: Warm and dry. ENT: No nasal bleeding or discharge. Mucous membranes pink and moist. NECK: Trachea midline. No JVD. CARDIOVASCULAR: Regular rate and rhythm. RESPIRATORY: No accessory muscle use. Lungs are clear to auscultation. Breath sounds equal bilaterally. LEFT lateral chest tube secured to pleura vac, serous drainage noted. No air leak. GASTROINTESTINAL: Abdomen soft, non-tender, nondistended. Midline tori well approximated, no erythema noted. MUSCULOSKELETAL: Extremities without cyanosis, or edema. MAEW. NEUROLOGICAL: Awake and alert. Normal speech and pattern. Hospital Course [place]: This is a 41-year-old gentleman who sustained a fall from approximately 20 feet. + EtOH. No LOC. PMHx: ETOH, tobacco and cannabis abuse. INJURIES: RIGHT temporal lac (tori) LEFT lung contusion LEFT hemothorax Multiple LEFT rib fractures LEFT iliac wing fracture (non-op) splenic lac Procedures: 10/01: Splenic embolization with IR 10/02: Splenectomy and LEFT CT placement for hemothorax Consults: Orthopedics. The patient is now tolerating a po diet. Eating and drinking well. Pain is being managed well with PO pain medications, and patient is being a provided with a script for pain meds upon discharge. (NO driving while taking narcotic pain medication enforced to patient.) Additionally provided with a prescription for blood pressure medication to control his blood pressure. Pt is having regular bowel movements, and we have recommended to the patient to continue with stool softeners while taking narcotic pain medications to prevent constipation. Pt has been participating in PT while admitted at [facility] and has been ambulating with their assistance and independently . No recommendations for outpatient PT suggested by physical therapist. All follow up appointments have been provided and discussed with the patient. It is recommended that the patient keeps all his follow up appointments for continued recovery. Therefore, the patient is stable to be safely discharged home from a trauma surgery standpoint. Thank you for allowing us to participate in his care. We wish Jorge the best in his recovery. Pt Condition on Discharge: Stable Discharge Disposition: Discharge Home Discharge Instructions DIET: Follow Instructions for: As Tolerated, No Restrictions Activities you can perform: Weight Bearing as Jan Activities to Avoid: Driving for 24 hrs, Concussion Sports, Contact Sports, Lifting/Bending, Prolonged Standing, Strenuous Activity Other Activity Instructions: Weightbearing as tolerated left lower extremity Rashmi Machuca Oct 08, 2016 16:18
== END 2016-10-08 17:37 | disposition home or self-care (01) | DRG 957 ==
LOC: NEPA 19:22 → NEDA 21:47 → NEDH 10-01 02:44 → N03A 10-01 12:30 → N03B 10-01 23:46 → N07A 10-03 15:27
PROVIDERS: ADMIT Surgery; ATTEND Surgery
PROC: 04L43DZ Occlusion of Splenic Artery with Intraluminal Device, Percutaneous Approach (ICD-10-PCS; 2016-09-30)
PROC: B4131ZZ Fluoroscopy of Splenic Arteries using Low Osmolar Contrast (ICD-10-PCS; 2016-09-30)
PROC: 0HQ0XZZ Repair Scalp Skin, External Approach (ICD-10-PCS; 2016-09-30)
PROC: 0W9B30Z Drainage of Left Pleural Cavity with Drainage Device, Percutaneous Approach (ICD-10-PCS; 2016-10-02)
PROC: 30233K1 Transfusion of Nonautologous Frozen Plasma into Peripheral Vein, Percutaneous Approach (ICD-10-PCS; 2016-10-02)
PROC: 30233N1 Transfusion of Nonautologous Red Blood Cells into Peripheral Vein, Percutaneous Approach (ICD-10-PCS; 2016-10-02)
PROC: 07TP0ZZ Resection of Spleen, Open Approach (ICD-10-PCS; principal; 2016-10-02 12:40)
PROC: 0D9W0ZZ Drainage of Peritoneum, Open Approach (ICD-10-PCS; 2016-10-02 12:40)
DX: S36.032A Major laceration of spleen, initial encounter (principal); S27.2XXA Traumatic hemopneumothorax, initial encounter; K66.1 Hemoperitoneum; S32.302A Unspecified fracture of left ilium, initial encounter for closed fracture; K65.0 Generalized (acute) peritonitis; S22.42XA Multiple fractures of ribs, left side, initial encounter for closed fracture; S27.321A Contusion of lung, unilateral, initial encounter; S36.021A Major contusion of spleen, initial encounter; S01.01XA Laceration without foreign body of scalp, initial encounter; I10 Essential (primary) hypertension; F10.129 Alcohol abuse with intoxication, unspecified; Y90.8 Blood alcohol level of 240 mg/100 ml or more; F17.210 Nicotine dependence, cigarettes, uncomplicated; W13.2XXA Fall from, out of or through roof, initial encounter; Z23 Encounter for immunization; Z88.0 Allergy status to penicillin
CPT/HCPCS: 12001; 36246; 36430; 37243; 70450; 70486; 71010; 71260; 72125; 74160; 74177; 75726; 75774; 76937; 80048; 80053; 80320; 83690; 83735; 84100; 85007; 85025; 85027; 85610; 85730; 86850; 86900; 86901; 86920; 86927; 88305; 90471; 90714; 90732; 90734; 93005; 94150; 94640; 99152; 99153; C1769; C1887; C1894; C9113; J0690; J1170; J2060; J2250; J2270; J2370; J2405; J2710; J3010; J3411; J3480; J7030; J7040; J7120; J7613; P9016; P9017; Q9967

== ENCOUNTER 2016-10-12 15:37 | Emergency (ER) | payer OTHER ==
[~2016-10-12] VITALS: Ht 160 cm; Wt 55.0 kg
[~2016-10-12 15:37] MED LIST: AMLO5 PO; LISI-515 PO; PERC5TAB12 PO; SENN1TAB PO; WALKER WHEELS/F1 MIS
[2016-10-12 15:39] VITALS: BP 123/75; PULSE 116; RESP 16; TEMP 98.1; O2SAT 97
[2016-10-12] MEDS ORDERED: PERC5TAB12 PO (16:25)
--- NOTE | 2016-10-12 16:37 | PD ---
HPI Chief Complaint: Medication Refill Request Time Seen by Provider: 16:28 Travel History International Travel<30 days: No Contact w/Intl Traveler<30days: No Traveled to known affect area: No History of Present Illness HPI 41-year-old male presents to the emergency department requesting a refill on Percocet prescription. He fell off a roof September 30 and was hospitalized here at [facility]. He had his spleen removed this past Tuesday and still has 2 Percocet left but is concerned because he is still in significant pain. He called Dr. Eugene, his surgeon, and he was told to come to the emergency room per refill of pain medication. He denies fever, chills, nausea, vomiting. His chest pain, shortness of breath. Reports abdominal pain secondary to his surgery. Has tori midline to the abdomen and denies any drainage from the wound site. Has no emergent medical complaints. Has follow-up appointment with Dr. Eugene in about a week and a half. Allergies to penicillin. History of hypertension. No other modifying factors or specific signs and symptoms. PFSH Past Medical History Cancer: No Cardiovascular Problems: No Diminished Hearing: No Endocrine: No Genitourinary: No Hypertension: Yes Immune Disorder: No Musculoskeletal: Yes (fractured vertebrae) Neurologic: Yes Psychiatric: No Reproductive: No Respiratory: No Social History Alcohol Use: Yes (daily) Tobacco Use: Yes (1/2 ppd) Substance Use: Yes (marijuana) Allergies-Medications (Allergen,Severity, Reaction): Coded Allergies: Penicillin (Verified Allergy, Severe, 10/12/16) Reported Meds & Prescriptions Reported Meds & Active Scripts Active Percocet (Oxycodone-Acetaminophen) 5-325 mg Tab 1-2 Tab PO Q4-6H PRN Senna Plus 8.6-50 mg (Sennosides-Docusate Sodium) 1 Tab Tab 1 Tab PO BID 30 Days Lisinopril 20 Mg Tab 10 Mg PO DAILY 30 Days Norvasc (Amlodipine Besylate) 5 Mg Tab 5 Mg PO DAILY 30 Days Percocet (Oxycodone-Acetaminophen) 5-325 mg Tab 1 Tab PO Q4H PRN Walker with Front Wheels (Device) 1 Mis Mis 1 Ea .ROUTE DIRECTED Review of Systems Except as stated in HPI: all other systems reviewed are Neg Physical Exam Narrative GENERAL: Well-nourished, well-developed male patient, in no acute distress SKIN: Warm and dry. Surgical wound with tori intact to midline abdomen that is well approximated without erythema, edema, drainage. No signs of infection. HEAD: Atraumatic. Normocephalic. EYES: Pupils equal and round. No scleral icterus. No injection or drainage. ENT: Mucosa pink and moist. Airway patent. NECK: Trachea midline. CARDIOVASCULAR: Regular rate and rhythm. No murmur appreciated. RESPIRATORY: No accessory muscle use. Clear to auscultation. Breath sounds equal bilaterally. GASTROINTESTINAL: Abdomen soft, non-tender, nondistended. Hepatic and splenic margins not palpable. Bowel sounds are active 4 quadrants. MUSCULOSKELETAL: No obvious deformities. No clubbing. No cyanosis. No edema. NEUROLOGICAL: Awake and alert. Oriented 3. No obvious cranial nerve deficits. Motor grossly within normal limits. Normal speech. PSYCHIATRIC: Appropriate mood and affect; insight and judgment normal. Data Data Last Documented VS Vital Signs Date Time Temp Pulse Resp B/P Pulse Ox O2 Delivery O2 Flow Rate FiO2 10/12/16 15:39 98.1 116 16 123/75 97 MDM Medical Decision Making Medical Screen Exam Complete: Yes Emergency Medical Condition: Yes Medical Record Reviewed: Yes Differential Diagnosis Medication refill, medical clearance, wound recheck, pain management Narrative Course 41-year-old male that fell off a roof on September 30 and was hospitalized here at [facility]. He had a splenectomy on Tuesday, performed by Dr. Koroma. Patient had Percocet for pain any salving continued pain post surgery. He does have a large midline surgical incision with tori intact. He said he called Dr. Koroma' s office today and was told to come to the ER for refill on his medication. I feel a refill on the Percocet is warranted at this time secondary to post trauma and post surgery pain. Percocet prescribed for home. Instructed patient to follow up with Dr. Kormoa for further refills and he verbalized understanding and agreement with treatment plan. Patient is medically cleared and stable for discharge. Discussed reasons to return to the emergency department. Instructed patient to follow up with primary care provider. Patient agrees with treatment plan. The patients vital signs are stable and the patient is stable for outpatient follow-up and treatment. Patient discharged home, stable and in no acute distress. Diagnosis Primary Impression: Encounter for medication refill Referrals: Primary Care Physician Patient Instructions: General Instructions, Medication Refill, ED Additional Instructions: Follow-up with primary care provider Follow-up with surgeon, Dr. Eugene Return to the emergency department immediately with worsening of symptoms Med/Other Pt SpecificInfo: Prescription(s) given Scripts Oxycodone-Acetaminophen (Percocet)5-325 mg Tab1-2 Tab PO Q4-6H PRN (PAIN) #20 TAB Ref 0 Prov:Nasir Henry MD 10/12/16 Disposition: 01 DISCHARGE HOME Condition: Stable Mariposa Huntley Oct 12, 2016 16:37
== END 2016-10-12 16:54 | disposition home or self-care (01) ==
LOC: NEPB 15:37
DX: R10.9 Unspecified abdominal pain (principal); Z76.0 Encounter for issue of repeat prescription; R06.02 Shortness of breath; R07.9 Chest pain, unspecified; I10 Essential (primary) hypertension; F17.210 Nicotine dependence, cigarettes, uncomplicated; W13.2XXD Fall from, out of or through roof, subsequent encounter
CPT/HCPCS: 99281